=== PATIENT | female | born 1960 | race African-American/Black ===

== ENCOUNTER 2021-03-27 22:12 | Inpatient (IN) | payer MEDICAID ==
[~2021-03-27] VITALS: Ht 165.1 cm; Wt 74.4 kg
--- NOTE | 2021-03-27 22:30 | NUR ---
RT PT RECVD IN ER FOR RESP DISTRESS, PT PLACED ON VENT ON SETTINGS GIVEN BY MEDIC OF RR 18, VT 500, FIO2 40% AND +5 PEEP. SPO2 99% HR 116. TRACH OF SH 8 XLT IS PATENT AND SECURED, SUCTION DONE. VENT PLUGGED INTO RED OUTLET, O2 CONNECTED TO WALL CONNECTION SECURELY AND ALARMS ON AND AUDIBLE. WILL CONTINUE TO MONITOR.
--- NOTE | 2021-03-27 22:30 | NUR ---
LISSA FROM [facility] TO ER BED 5. NON VERBAL, ALERT AND AWAKE. BROUGHT IN FOR DYSPNEA AND TACHYPNEA. PT IS A VENT AND TRACH PT. PT WAS NOTED HAVING RR OF 28. PT IS ALSO NOTED HAVING HR OF 120. MD WAS AT THE BEDSIDE FOR EVAL.
[2021-03-27] MEDS ORDERED: ACETAMINOPHEN 650 MG/SUPP.RECT RC ONE ×2 (22:35→23:00)
[2021-03-27] MEDS ORDERED: VANCOMYCIN 1 GM VIAL ONE (22:55)
[2021-03-27] MEDS ORDERED: VANCOMYCIN 1 GM in IV D5W 250 ML IV ONE (23:00)
[2021-03-27] MEDS ORDERED: IV NS 0.9% 500 ML BAG IV ONE (23:00)
[2021-03-27 23:15] LABS: HEMOGLOBIN 7.7 g/dL (11.5-14.8)
[2021-03-27 23:20] LABS: BASOPHILS % (AUTO) 0.3 % (0.0-2.0); EOSINOPHILS % (AUTO) 0.2 % (0.0-6.0); HEMATOCRIT 25 % (33-45); LYMPHOCYTES # (AUTO) 2.3 K/uL (0.8-4.8); LYMPHOCYTES % (AUTO) 19.2 % (20.0-44.0); MEAN CORPUSCULAR HGB CONC 31 g/dl (31.0-36.0); MEAN CORPUSCULAR VOLUME 83 fL (82-100); MONOCYTES # (AUTO) 0.3 K/uL (0.1-1.30); MONOCYTES % (AUTO) 2.7 % (2.0-12.0); NEUTROPHILS # (AUTO) 9.4 K/uL (1.8-8.9); NEUTROPHILS % (AUTO) 77.6 % (43.0-81.0); PLATELET COUNT (AUTO) 314 K/uL (150-450)
--- NOTE | 2021-03-27 23:27 | NUR ---
RADIOLOGY AT BEDSIDE
[2021-03-27 23:28] LABS: CALCIUM, SERUM 8.4 mg/dL (8.5-10.1); CARBON DIOXIDE 26 mmol/L (21-32); CHLORIDE 108 mmol/L (98-107); CREATININE 0.8 mg/dL (0.6-1.3); GLUCOSE 111 mg/dL (74-106); POTASSIUM 4.3 mmol/L (3.5-5.1); SODIUM SERUM 144 mmol/L (136-145); UREA NITROGEN, BLOOD 33 mg/dL (7-18)
[2021-03-27 23:29] LABS: BILIRUBIN,URINE Negative (NEGATIVE); COLOR,URINE YELLOW (YELLOW); LEUKOCYTE ESTERASE ,URINE Negative (NEGATIVE); NITRITE, URINE Negative (NEGATIVE); PH,URINE 5.5 (5.0-8.0); PROTEIN,URINE 30 mg/dl (NEGATIVE); UGLUCOSE Negative (NEGATIVE)
[2021-03-27] MEDS ORDERED: ENOXAPARIN SODIUM 80 MG/0.8 ML DISP.SYRIN SQ ONE (23:29)
--- NOTE | 2021-03-27 23:29 | NUR ---
VERIFIED WITH MD REGARDING LOVENOX ORDER. PT IS 79KG WITH ORDER TO GIVE 1MG /KG=79MG SQ X 1 DOSE
[2021-03-27 23:44] LABS: BACTERIA,URINE Rare /HPF (None Seen); SQUAMOUS EPITHELIAL CELL,UR 0-2 /HPF (None Seen); WBC,URINE 0-2 /HPF (0-3)
[2021-03-27 23:45] LABS: ALANINE AMINOTRANSFERASE 136 U/L (12-78); ALKALINE PHOSPHATASE 216 U/L (46-116); ASPARTATE AMINOTRANSFERASE 134 U/L (15-37); BILIRUBIN,DIRECT 0.3 mg/dL (0.0-0.2); BILIRUBIN,TOTAL 0.5 mg/dL (0.2-1.0); TOTAL PROTEIN, SERUM 8.3 g/dL (6.4-8.2)
[2021-03-27 23:46] LABS: ALBUMIN 1.1 g/dL (3.4-5.0)
[2021-03-28] VITALS (33 sets, daily range): BP systolic 83–130; BP diastolic 51–78
[2021-03-28] MEDS ORDERED: AZITHROMYCIN 500 MG VIAL ONE (00:28)
[2021-03-28] MEDS ORDERED: IV D5/0.45 NACL 1,000 ML IV PRN (00:30)
[2021-03-28] MEDS ORDERED: ACETAMINOPHEN 650 MG/SUPP.RECT RC PRN (00:30)
[2021-03-28] MEDS ORDERED: Z GUARD REMEDY 2 OZ OINT TP PRN (00:30)
[2021-03-28] MEDS ORDERED: AZITHROMYCIN 500 MG in IV D5W 250 ML IV ONE (00:30)
[2021-03-28 00:52] LABS: WHITE BLOOD COUNT (AUTO) 14.5 K/uL (4.3-11.0)
[2021-03-28 00:53] LABS: BAND % (MANUAL) 13 % (0.0-5.0); LYMPHOCYTES % (MANUAL) 16 % (16-48); METAMYELOCYTES % 3 % (0-0); MONOCYTES % (MANUAL) 7 % (0-11.0); MYELOCYTES % 1 % (0-0); NEUTROPHILS % (MANUAL) 56 (42-76); REACTIVE LYMPHOCYTES 4 % (0-0)
--- NOTE | 2021-03-28 01:34 | NUR ---
TEMP 102.4. PROVIDED WITH COOLING MEASURES.
[2021-03-28] MEDS ORDERED: MEROPENEM 500 MG in IV NS 0.9% 50 ML IV SCH ×2 (02:26→13:00)
[2021-03-28] MEDS ORDERED: MEROPENEM 500 MG VIAL IV ONE (02:52)
--- NOTE | 2021-03-28 04:18 | NUR ---
BED 259 ICU
--- NOTE | 2021-03-28 04:40 | NUR ---
REPORT GIVEN TO CANDI WORLEY FOR JOSE DE JESUS.
--- NOTE | 2021-03-28 05:00 | NUR ---
ICU/BED MANAGER PT PLACED INTO BED, PLACED ON MONITOR. REPORT RECIEVED FROM ER NURSE. RT PLACED PT ON VENT WITH CURRENT SETTINGS. SKIN ISSUES ARE ADDRESSED ALONG WITH INTERVENTIONS TO EACH. SEE FLOW SHEET FOR ASSESSMENT. PT CURRENTLY HAS NO FEVER AND NO TACHY CARDIA. WILL MONITOR THIS PT.
--- NOTE | 2021-03-28 05:07 | NUR ---
PATIENT TAKEN UP WITH RT VIA ACLS PROTOCOLS.
--- NOTE | 2021-03-28 05:10 | NUR ---
RT Pt transported to ICU #259 with MEIR Ricketts, vent plugged into red outlet, O2 Connected to wall connection. Ambu bag and spare trach at bedside.
[2021-03-28 05:51] LABS: BASOPHILS # (AUTO) 0.1 K/uL (0.0-0.2); BASOPHILS % (AUTO) 0.5 % (0.0-2.0); HEMATOCRIT 23 % (33-45); HEMOGLOBIN 7.2 g/dL (11.5-14.8); LYMPHOCYTES # (AUTO) 3.2 K/uL (0.8-4.8); MEAN CORPUSCULAR HGB CONC 31 g/dl (31.0-36.0); MEAN CORPUSCULAR VOLUME 83 fL (82-100); MONOCYTES # (AUTO) 0.5 K/uL (0.1-1.30); MONOCYTES % (AUTO) 3.3 % (2.0-12.0); NEUTROPHILS # (AUTO) 10.1 K/uL (1.8-8.9); NEUTROPHILS % (AUTO) 73.2 % (43.0-81.0); PLATELET COUNT (AUTO) 290 K/uL (150-450); RED BLOOD CELL COUNT(AUTO) 2.76 MIL/uL (4.0-5.2); WHITE BLOOD COUNT (AUTO) 13.8 K/uL (4.3-11.0)
[2021-03-28 06:05] LABS: THYROID STIMULATING HORMONE 2.797 uIU/mL (0.358-3.74)
[2021-03-28 06:12] LABS: BILIRUBIN,TOTAL 0.6 mg/dL (0.2-1.0); CALCIUM, SERUM 8.2 mg/dL (8.5-10.1); CREATININE 0.7 mg/dL (0.6-1.3); PHOSPHORUS 3.8 mg/dL (2.5-4.9); POTASSIUM 3.7 mmol/L (3.5-5.1); TOTAL PROTEIN, SERUM 7.8 g/dL (6.4-8.2)
[2021-03-28 06:29] LABS: ALBUMIN 1.1 g/dL (3.4-5.0)
--- NOTE | 2021-03-28 06:30 | NUR ---
ICU/SURGICAL INSTRUMENT MECHANIC DR POPE STOP LOVENOX DUE TO H/H THAT IS TRENDING DOWN. PHARMACY MADE AWARE OF THIS.
--- NOTE | 2021-03-28 07:10 | NUR ---
ICU/REIMBURSEMENT REP PASSED ON TO DAY SHIFT TO GET MRSA NARES BECAUSE THIS WAS NOT DONE BY ER.
--- NOTE | 2021-03-28 07:35 | NUR ---
RN NOTES RECEIVED PATIENT AWAKE BUT NONVERBAL, TRACH TO VENT WITH SETTINGS AC 18 TV 500 FIO2 40% PEEP 5. SR ON BEDSIDE MONITOR. G TUBE CLAMPED. SOMMER DRAINING BY GRAVITY. PICC VIRA WITH D5 1/2 NS AT 60ML/HR. MRSA SWAB DONE. NO BP AND NO BLOOD DRAWS ON LEFT ARM DUE TO HISTORY OF MASTECTOMY - SIGNS POSTED. SAFETY CHECKS IN PLACE. WILL CONTINUE TO MONITOR.
[2021-03-28] MEDS ORDERED: ATOR10TA GT (08:08)
[2021-03-28] MEDS ORDERED: NUT.237L30 GT (08:08)
[2021-03-28] MEDS ORDERED: SENN-261 GT (08:08)
[2021-03-28] MEDS ORDERED: CHLO473M5 MM (08:08)
[2021-03-28] MEDS ORDERED: ACET-868 GT (08:08)
[2021-03-28] MEDS ORDERED: DOCU50LI GT (08:08)
[2021-03-28] MEDS ORDERED: GLUC1KIT IM (08:08)
[2021-03-28] MEDS ORDERED: POTA20PA3 GT (08:08)
[2021-03-28] MEDS ORDERED: INSU100V27 SQ (08:08)
[2021-03-28] MEDS ORDERED: ASCO-352 GT (08:08)
[2021-03-28] MEDS ORDERED: MAGN400O6 GT (08:08)
[2021-03-28] MEDS ORDERED: METO25TA20 GT (08:08)
[2021-03-28] MEDS ORDERED: DEXT38GE12 PO (08:08)
[2021-03-28] MEDS ORDERED: CEFT1VIA15 IV (08:08)
[2021-03-28] MEDS ORDERED: MAGN400T26 GT (08:08)
[2021-03-28] MEDS ORDERED: FAMO20VI5 IV (08:08)
[2021-03-28] MEDS ORDERED: IPRA4AER IH ×2 (08:08)
[2021-03-28] MEDS ORDERED: HEPA50007 SQ (08:08)
[2021-03-28] MEDS ORDERED: DEXT50DI8 IV (08:08)
[2021-03-28] MEDS: PANTOPRAZOLE 40 MG VIAL IV SCH (08:12)
[2021-03-28] MEDS: MEROPENEM 1 G in IV NS 0.9% 100 ML IV SCH ×3 (08:12→23:38)
[2021-03-28] MEDS ORDERED: ENOXAPARIN SODIUM 80 MG/0.8 ML DISP.SYRIN SQ SCH ×2 (09:00)
[2021-03-28] MEDS: METOPROLOL TARTRATE 25 MG TABLET GT SCH ×2 (09:34→16:08)
[2021-03-28] MEDS: ASCORBIC ACID 500 MG TABLET GT SCH (09:34)
[2021-03-28] MEDS: HEPARIN SODIUM, PORCINE 5000 UNITS/1 ML VIAL SQ SCH ×2 (09:39→22:00)
[2021-03-28] MEDS: ACETAMINOPHEN 650 MG/20.3 ML UDC NG PRN ×2 (11:15→17:18)
[2021-03-28] MEDS: VANCOMYCIN 1 GM in IV D5W 250 ML IV SCH ×2 (11:15→23:37)
[2021-03-28 12:23] LABS: MAGNESIUM 2.8 mg/dL (1.8-2.4)
[2021-03-28] MEDS: ALBUTEROL FS 2.5 MG/3 ML VIAL.NEB NEB SCH ×2 (13:44→19:30)
[2021-03-28] MEDS: IPRATROPIUM NEB FS 0.5 MG/2.5 ML AMPUL.NEB NEB SCH ×2 (13:44→19:30)
--- NOTE | 2021-03-28 16:00 | NUR ---
RN NOTE PENDING DIETITIAN CONSULT FOR THE TYPE AND THE RATE OF TUBE FEEDING. PATIENT WAS ON GLUCERNA 1.[address] [facility]. THUS WAS ORDERED FOR THE SAME FEED AT 10 ML/HR FOR OVERNIGHT UNTIL FURTHER RECOMMENDATION FROM DIETITIAN.
[2021-03-28] MEDS: GLUCERNA 1.2 1,000 ML BOTTLE NG PRN (17:30)
--- NOTE | 2021-03-28 18:17 | NUR ---
RN NOTES PATIENT REMAINS AWAKE, EYES TRACKING BUT NONVERBAL, TRACH TO VENT WITH SETTINGS AC 18 TV 500 FIO2 30% PEEP 5. SR WITH BIGEMINY. G TUBE TO GLUCERNA 1.2 AT 10ML/HR, TOLERATING WELL AT THIS TIME. SOMMER DRAINED 750MLS. PICC VIRA WITH TKO ON FLOW. COOLING MEASURES IN PLACE. WILL ENDORSE TO NIGHT RN FOR CONTINUITY OF CARE.
--- NOTE | 2021-03-28 19:52 | NUR ---
RT NOTE TX NOT GIVEN DUE TO PENDING COVID RESULTS. RN IRIS AWARE. NO DISTRESS NOTED. WILL MONITOR.
[2021-03-29] VITALS (33 sets, daily range): BP systolic 100–136; BP diastolic 53–84
[2021-03-29] MEDS: ACETAMINOPHEN 650 MG/20.3 ML UDC NG PRN ×3 (00:20→19:47)
[2021-03-29] MEDS: ALBUTEROL FS 2.5 MG/3 ML VIAL.NEB NEB SCH ×4 (01:30→20:34)
[2021-03-29] MEDS: IPRATROPIUM NEB FS 0.5 MG/2.5 ML AMPUL.NEB NEB SCH ×4 (01:30→20:34)
--- NOTE | 2021-03-29 01:51 | NUR ---
patient has trach to vent ac18,tv 500, [id number]% peep 5 sat 100%. on monitor sinus has upper right picc line lungs diminish to listen patient has gt-glucernia infusing at 10 cc hour. no residual.at mid nite no residual. patient has f/c draining berna urine. skin with open wound at sacral. patient had 101 temp given tylenol elixer. ice packs to each side of patients body.will check again at 0400.
[2021-03-29 04:56] LABS: CREATININE 0.8 mg/dL (0.6-1.3); MAGNESIUM 2.7 mg/dL (1.8-2.4); POTASSIUM 3.5 mmol/L (3.5-5.1)
[2021-03-29 05:03] LABS: BASOPHILS % (AUTO) 0.2 % (0.0-2.0); EOSINOPHILS % (AUTO) 0.1 % (0.0-6.0); HEMATOCRIT 23 % (33-45); HEMOGLOBIN 7.4 g/dL (11.5-14.8); LYMPHOCYTES # (AUTO) 1.5 K/uL (0.8-4.8); LYMPHOCYTES % (AUTO) 11.6 % (20.0-44.0); MEAN CORPUSCULAR HGB CONC 32 g/dl (31.0-36.0); MEAN CORPUSCULAR VOLUME 83 fL (82-100); MONOCYTES # (AUTO) 0.3 K/uL (0.1-1.30); MONOCYTES % (AUTO) 2.4 % (2.0-12.0); NEUTROPHILS # (AUTO) 10.7 K/uL (1.8-8.9); NEUTROPHILS % (AUTO) 85.7 % (43.0-81.0); PLATELET COUNT (AUTO) 275 K/uL (150-450); RED BLOOD CELL COUNT(AUTO) 2.81 MIL/uL (4.0-5.2)
[2021-03-29 06:33] LABS: BAND % (MANUAL) 27 % (0.0-5.0); LYMPHOCYTES % (MANUAL) 20 % (16-48); MONOCYTES % (MANUAL) 4 % (0-11.0); NEUTROPHILS % (MANUAL) 49 (42-76)
[2021-03-29 06:36] LABS: WHITE BLOOD COUNT (AUTO) 13.1 K/uL (4.3-11.0)
--- NOTE | 2021-03-29 07:05 | NUR ---
RN NOTES RECEIVED PATIENT AWAKE , NONVERBAL, TRACH TO VENT WITH SETTINGS AC 18 TV 500 FIO2 40% PEEP 5. SR ON BEDSIDE MONITOR. TF AT 10CC/HR RUNNING, NO RESIDUAL NOTED, SOMMER DRAINING BY GRAVITY. NO BP AND NO BLOOD DRAWS ON LEFT ARM DUE TO HISTORY OF MASTECTOMY - SIGNS POSTED. SAFETY CHECKS IN PLACE. SR UP x3, CALL LIGHT WITHIN EASY REACH, BED LOCKED AND IN LOWEST POSITION, WILL CONTINUE TO MONITOR.
--- NOTE | 2021-03-29 07:51 | NUR ---
WOUND CARE CONSULT: REVIEWED CHART,NURSING DOCUMENTATION AND PHOTOS WHICH INDICATE SACRAL SCARRING WITH DISCOLORATION AND FOOT LESIONS/WOUNDS, PRESENT ON ADMISSION. SURGICAL/DPM CONSULTS MADE TO DR LEDBETTER AND DR URBAN. RECOMMENDATIONS MADE FOR SKIN PROTECTION. DISCUSSED WITH NURSING STAFF. FIRST STEP LOW AIRLOSS MATTRESS IS ON ORDER. MD IN AGREEMENT WITH PLAN OF CARE.
[2021-03-29] MEDS: MEROPENEM 1 G in IV NS 0.9% 100 ML IV SCH ×4 (08:05→23:31)
[2021-03-29] MEDS: PANTOPRAZOLE 40 MG VIAL IV SCH (08:07)
[2021-03-29] MEDS: ASCORBIC ACID 500 MG TABLET GT SCH (08:08)
[2021-03-29] MEDS: METOPROLOL TARTRATE 25 MG TABLET GT SCH ×2 (08:08→17:00)
[2021-03-29] MEDS: HEPARIN SODIUM, PORCINE 5000 UNITS/1 ML VIAL SQ SCH ×2 (08:09→20:11)
[2021-03-29 10:38] LABS: BILIRUBIN,DIRECT 0.4 mg/dL (0.0-0.2); BILIRUBIN,TOTAL 0.6 mg/dL (0.2-1.0); TOTAL PROTEIN, SERUM 7.5 g/dL (6.4-8.2)
[2021-03-29 10:47] LABS: ALBUMIN 1.1 g/dL (3.4-5.0)
--- NOTE | 2021-03-29 12:00 | NUR ---
RN NOTES TRACH CARE DONE, CONTINUE TO MONITOR.
[2021-03-29] MEDS: VANCOMYCIN 1 GM in IV D5W 250 ML IV SCH (12:04)
--- NOTE | 2021-03-29 15:10 | NUR ---
RN NOTES L UPPER ARM PICC LINE SITE LEAKING , DRESSING WET TO TOUCH, PICC LINE D/CE, NEW ORDER RECEIVED FOR MIDLINE PLACEMENT.
--- NOTE | 2021-03-29 15:50 | NUR ---
RN NOTES PT TRANSFERRED TO ROOM 327-1 TELE STATUS , VIA ACLS PROTOCOL , NO BELONGING NOTED , IN STABLE CONDITION, REPORT GIVEN TO TANISHA RN FOR CONTINUITY OF CARE .
--- NOTE | 2021-03-29 18:25 | NUR ---
RT Pt received trached on mechanical ventilation with noted settings. Vent is plugged into red outlet with BVM and spare trach by bedside. No SOB or respiratory distress noted. Addendum: 03/29/21 at 1826 by BUNNY TONY RT Amended: Links added.
[2021-03-29] MEDS: GLUCERNA 1.2 1,000 ML BOTTLE NG PRN (18:26)
--- NOTE | 2021-03-29 19:06 | NUR ---
HEAD START ASSISTANT TEACHER CLOSING NOTES PATIENT CURRENTLY LYING IN BED, AWAKE. NONVERBAL, OPENS EYES. TRACH TO VENT - SETTINGS AC 18 TV 500 FIO2 40% PEEP 5. ON TELE MONITOR - SR WITH PVCS. G TUBE NOTED - INTACT AND PATENT - RUNNING GLUCERNA 1.2 AT 40CC/HR. SOMMER CATHETER NOTED - INTACT AND PATENT - DRAINING CLEAR, URINE TO GRAVITY. IV ACCESS TO LEFT UPPER ARM - MIDLINE - INTACT AND IN PLACE (PLACEMENT IS FINE WITH MASTECTOMY - RN TO MONITOR CLOSELY). NO BP OR BLOOD DRAWS ON LEFT ARM DUE TO HISTORY OF MASTECTOMY - ENDORSED TO SKOOG PATCHING MACHINE OPERATOR NURSE. SAFETY MEASURES IN PLACE. CALL LIGHT WITHIN REACH. WILL ENDORSE TO SKOOG PATCHING MACHINE OPERATOR NURSE FOR JOSE DE JESUS.
--- NOTE | 2021-03-29 19:10 | NUR ---
RN NOTE RECEIVED PATIENT IN BED RESTING OPEN EYES,NON VERBAL,ON MECHANICAL VENT SETTING TV 500 AV 18 PEEP 5 FIO2:30% O2:96% IV SITE IS ON LEFT UPPER ARM MID LINE INTACT PATENT (PLACEMENT IS FINE WITH MASTECTOMY)NO LAB DRAW NO BP ON LEFT ARM,ON G-TUBE FEEDING GLUCERNA 1.2 40CC/HR CHECKED PLACEMENT IN PLACE NO RESIDUAL NOTED,SOMMER CATHETER IN PLACE URINE DRAINING YELLOW AND CLEAR BY GRAVITY, HEAD OF THE BED ELEVATED,SAFETY MEASURE IMPLEMENT BED IN LOW POSITON AND LOCKED,CONTINUE TO MONITOR.
--- NOTE | 2021-03-29 19:47 | NUR ---
RN NOTE TEMPERTURE IS 100.9 ACETAMINOPHEN 650MG PRN GIVEN CONTINUE TO MONITOR.
[2021-03-29] MEDS: BISACODYL SUPP (10 MG) 10 MG/SUPP.RECT SUPP.RECT RC PRN (21:45)
--- NOTE | 2021-03-29 22:00 | NUR ---
RN NOTE TEMPERATURE IS 99.3 CONTINUE TO MONITOR
[2021-03-30] VITALS: BP_SYST 102; BP_SYST 97; BP_DIAS 54; BP_DIAS 57
[2021-03-30] MEDS: VANCOMYCIN 1 GM in IV D5W 250 ML IV SCH (00:17)
[2021-03-30] MEDS: IPRATROPIUM NEB FS 0.5 MG/2.5 ML AMPUL.NEB NEB SCH ×4 (02:06→20:11)
[2021-03-30] MEDS: ALBUTEROL FS 2.5 MG/3 ML VIAL.NEB NEB SCH ×4 (02:06→20:11)
--- NOTE | 2021-03-30 02:30 | NUR ---
RN NOTE PATIENT HR GOING HIGH 162 BP 114/[address] POPE ORDERED STAT EKG NOTED AND CARRIED OUT.
[2021-03-30] MEDS ORDERED: ADENOSINE 6 MG/2 ML VIAL IVP STA ×2 (02:45→03:03)
[2021-03-30] MEDS ORDERED: ADENOSINE 6 MG/2 ML VIAL ONE (03:03)
[2021-03-30] MEDS: MORPHINE SULFATE INJ 2 MG/ML DISP.SYRIN IV PRN (03:10)
--- NOTE | 2021-03-30 03:10 | NUR ---
RN NOTE MORPHINE IV PUSH PRN GIVEN FOR PAIN 03/23 CONTINUE TO MONITOR.
[2021-03-30] MEDS: ACETAMINOPHEN 650 MG/20.3 ML UDC NG PRN (03:30)
--- NOTE | 2021-03-30 03:30 | NUR ---
RN NOTE RESULT OF EKG SENT TO DR POPE AT 249 HE ORDERED ADENOSINE 6MG/2ML IV PUSH NOTED AND CARRIED OUT IV PUSH DONE ON 253 CONTINUE TO MONITOR,STILL HR IS HIGH [address] POPE HE ORDERED 12MG/4ML ADENOSINE IV PUSH CONTINUE TO MONITOR, HELD SECOND ADENOSINE DUE TO HR [address] POPE CONTINUE TO MONITOR
[2021-03-30 04:00] VITALS: BP 104/57
[2021-03-30 06:26] LABS: BASOPHILS % (AUTO) 0.3 % (0.0-2.0); EOSINOPHILS % (AUTO) 0.2 % (0.0-6.0); HEMATOCRIT 22 % (33-45); LYMPHOCYTES # (AUTO) 1.7 K/uL (0.8-4.8); LYMPHOCYTES % (AUTO) 15.8 % (20.0-44.0); MEAN CORPUSCULAR HGB CONC 31 g/dl (31.0-36.0); MEAN CORPUSCULAR VOLUME 84 fL (82-100); MONOCYTES # (AUTO) 0.2 K/uL (0.1-1.30); MONOCYTES % (AUTO) 1.6 % (2.0-12.0); NEUTROPHILS # (AUTO) 8.7 K/uL (1.8-8.9); NEUTROPHILS % (AUTO) 82.1 % (43.0-81.0); PLATELET COUNT (AUTO) 283 K/uL (150-450); RED BLOOD CELL COUNT(AUTO) 2.65 MIL/uL (4.0-5.2); WHITE BLOOD COUNT (AUTO) 10.6 K/uL (4.3-11.0)
[2021-03-30 06:40] LABS: CALCIUM, SERUM 7.8 mg/dL (8.5-10.1); CREATININE 0.6 mg/dL (0.6-1.3); MAGNESIUM 2.5 mg/dL (1.8-2.4); PHOSPHORUS 2.8 mg/dL (2.5-4.9); POTASSIUM 3.3 mmol/L (3.5-5.1)
[2021-03-30 08:00] VITALS: BP 83/47
[2021-03-30 08:05] LABS: ABG BASE EXCESS 6.4 mmol/L; ABG OXYGEN SATURATION 95.3 % (92.0-98.5); ABG PCO2 37.5 mmHg (35.0-45.0); ABG PH 7.518 (7.350-7.450); ABG PO2 76.9 mmHg (75.0-100.0); AaDO2 92.9 mmHg; COHb 1.7 % (0.5-1.5); MetHb 0.3 % (0.0-1.5); O2Hb 93.4 % (94.0-97.0); SITE, ABG Right Radial; VENT MODE, BG Ac 18 500 +5 30%
--- NOTE | 2021-03-30 08:22 | NUR ---
G REPORT SENT TO DR. VENEGAS.
[2021-03-30] MEDS ORDERED: IV NS 0.9% 500 ML BAG IV ONE (08:30)
[2021-03-30] MEDS: METOPROLOL TARTRATE 25 MG TABLET GT SCH ×2 (08:33→16:17)
--- NOTE | 2021-03-30 08:43 | NUR ---
DR. NELSON CALLED WITH LOW BP,ORDERS GIVEN.
[2021-03-30 09:21] LABS: BAND % (MANUAL) 15 % (0.0-5.0); LYMPHOCYTES % (MANUAL) 30 % (16-48); METAMYELOCYTES % 1 % (0-0); MONOCYTES % (MANUAL) 4 % (0-11.0); NEUTROPHILS % (MANUAL) 50 (42-76)
[2021-03-30] MEDS: ASCORBIC ACID 500 MG TABLET GT SCH (09:52)
[2021-03-30] MEDS: PANTOPRAZOLE 40 MG/PACK PACK GT SCH (09:53)
[2021-03-30] MEDS: HEPARIN SODIUM, PORCINE 5000 UNITS/1 ML VIAL SQ SCH (09:55)
[2021-03-30] MEDS ORDERED: POTASSIUM CHLORIDE 20 MEQ POWDER PACKET GT SCH (10:00)
[2021-03-30] MEDS: MEROPENEM 1 G in IV NS 0.9% 100 ML IV SCH ×2 (10:17→16:44)
--- NOTE | 2021-03-30 10:42 | NUR ---
bp recheck after ns fluid 105/52,heart rate 90.dr. dawson here and aware.
--- NOTE | 2021-03-30 10:44 | NUR ---
given klor con 20 meq per g-tube for potassium level 3.3.
--- NOTE | 2021-03-30 11:35 | NUR ---
PER DR. VENEGAS THORACENTESIS CAN BE DONE TOMORROW MORNING. RN/ ANDER WILL PUT A NOTE TO HOLD HEPARIN UNTIL AFTER PROCEDURE.
[2021-03-30 12:00] VITALS: BP 104/50
[2021-03-30 12:07] LABS: *SPE A/G RATIO 0.2 (0.7-1.7); *SPE ALPHA-1-GLOBULIN 0.6 g/dL (0.0-0.4); *SPE ALPHA-2-GLOBULIN 1.4 g/dL (0.4-1.0); *SPE BETA GLOBULIN 1.3 g/dL (0.7-1.3); *SPE M-SPIKE Not Observed g/dL (Not Observed)
[2021-03-30 16:00] VITALS: BP 112/53
--- NOTE | 2021-03-30 17:45 | NUR ---
PER DRAINAGE INSPECTOR PT HAS 11 BEATS OF V-TACH.PHOTO OF RHYTHM TAKEN AND SENT TO DR. SMITH.ORDERS GIVEN.
[2021-03-30] MEDS ORDERED: POTASSIUM CHLORIDE 20 MEQ POWDER PACKET GT ONE (19:00)
--- NOTE | 2021-03-30 19:50 | NUR ---
RN NOTES PATIENT RECEIVED IN BED PT OPEN EYES ON MECHANICAL VENT,ON TELE MONITORY NO SOB NOTED,IV SITE IS ON LEFT UPPER ARM MIDLINE INTACT PATENT KEEP CLEAN AND DRY ALL THE TIME,KEEP COMFORTABLE,KEEP HEAD OF THE BED ELEVATED . PT HAS GT WITH GLUCERNA 1.2 RUNNING AT@ 40 ML/HR TOLERATING WELL.WILL CONTINUE TO MONITOR.
[2021-03-30 20:00] VITALS: BP 109/53
--- NOTE | 2021-03-30 22:00 | NUR ---
RN NOTES DUE TO VENT SHUTTING OFF AND RED PLUG NOT WORKING ENGENDERING CALLED IMMEDIATELY TO CHECK OUTLETS. CHARGE NURSE MADE AWARE OF OUTLET MALFUNCTION WILL CONTINUE TO MONITOR PT CLOSELY.
--- NOTE | 2021-03-30 22:10 | NUR ---
RT NOTE ARRIVED TO FLOOR AND NOTICED VENTILATOR ALARM ALARMING. ARRIVED BEDSIDE AND VENTILATOR SHUT OFF AND NOTED BACK UP BATTERY FLASHING WITH NURSES BEDSIDE. VENT NOTED TO BE PLUGGED INTO RED OUTLET AT THIS TIME. BAG VENTILATION PERFORMED ON PATIENT VIA TRACH. NO DISTRESS NOTED ON PATIENT SPO2 94% HR103. RED OUTLET WAS NOT WORKING AT THIS TIME. SWITCHED VENTILATOR PLUG TO DIFFERENT RED OUTLET. VENTILATOR FUNCTIONING AFTER SWITCH. REMAINED BEDSIDE TO ENSURE VENTILATOR FUNCTIONING PROPERLY. PATIENT REMAINS IN STABLE CONDITION AT THIS TIME. NO SIGNS OF RESPIRATORY DISTRESS NOTED. ALARMS ARE SET AND AUDIBLE. WILL CONTINUE TO MONITOR PATIENT. Addendum: 03/30/21 at 2234 by SITA VANEGAS RT Amended: Links added.
[2021-03-31] VITALS (10 sets, daily range): BP systolic 97–118; BP diastolic 40–59
[2021-03-31] MEDS: MEROPENEM 1 G in IV NS 0.9% 100 ML IV SCH ×2 (00:05→08:07)
[2021-03-31] MEDS: GLUCERNA 1.2 1,000 ML BOTTLE NG PRN (00:11)
[2021-03-31] MEDS: IPRATROPIUM NEB FS 0.5 MG/2.5 ML AMPUL.NEB NEB SCH ×4 (01:49→19:53)
[2021-03-31] MEDS: ALBUTEROL FS 2.5 MG/3 ML VIAL.NEB NEB SCH ×4 (01:49→19:53)
[2021-03-31 06:07] LABS: BASOPHILS % (AUTO) 0.2 % (0.0-2.0); EOSINOPHILS % (AUTO) 0.6 % (0.0-6.0); HEMATOCRIT 22 % (33-45); LYMPHOCYTES # (AUTO) 2.3 K/uL (0.8-4.8); LYMPHOCYTES % (AUTO) 18.9 % (20.0-44.0); MEAN CORPUSCULAR HGB CONC 31 g/dl (31.0-36.0); MEAN CORPUSCULAR VOLUME 84 fL (82-100); MONOCYTES # (AUTO) 0.6 K/uL (0.1-1.30); MONOCYTES % (AUTO) 4.9 % (2.0-12.0); NEUTROPHILS # (AUTO) 9.1 K/uL (1.8-8.9); NEUTROPHILS % (AUTO) 75.4 % (43.0-81.0); PLATELET COUNT (AUTO) 262 K/uL (150-450); RED BLOOD CELL COUNT(AUTO) 2.64 MIL/uL (4.0-5.2)
[2021-03-31 06:39] LABS: HEMOGLOBIN 6.8 g/dL (11.5-14.8)
--- NOTE | 2021-03-31 07:12 | NUR ---
RN NOTES PATIENT REMAINS ON OPEN EYES ON MECHANICAL VENT,ON TELE MONITORY HR 89 NO SOB NOTED,IV SITE IS ON LEFT UPPER ARM MIDLINE INTACT PATENT ALL DUE MEDS GIVEN MD ORDERED KEEP CLEAN AND DRY ALL THE TIME,KEEP COMFORTABLE,KEEP HEAD OF THE BED ELEVATED ALL NEEDS MET ENDORSE NEXT COMING SHIFT FOR CONTINUATION OF CARE.
--- NOTE | 2021-03-31 07:22 | NUR ---
COMMERCIAL LINES ACCOUNT ASSISTANT OPENING NOTES RECEIVED PATIENT LYING AT MODERATE HIGH BACKREST POSITION. OBTUNDED, OPEN EYES TO STIMULI. PT WITH TRACH CONNECTED TO MECHANICAL VENTILATOR AT SETTINGS: AC TV 500 R 18 PEEP 0 FIO2:30% SPO2 96%-97% AT THIS TIME. TELEMONITOR READING SHOWS NSR WITH BBB'S AND OCCASIONAL PVC'S, HR ON THE 90'S, MIDLINE LEFT UPPER ARM INTACT AND PATENT, NO LAB DRAW AND NO BP ON LEFT ARM. ON G-TUBE FEEDING OF GLUCERNA 1.2 @ 40CC/HR, TOLERATING WELL. ASPIRATION PRECAUTIONS MAINTAINED. SOMMER CATHETER IN PLACE URINE DRAINING CLEAR YELLOW VIA GRAVITY: SAFETY MEASURES IN PLACE: HOB KEPT ELEVATED AT ALL TIME, BED IN LOWEST LOCKED POSITION W/ SR UP X3. CALL LIGHT W/IN REACH. WILL CONTINUE TO MONITOR.
[2021-03-31 07:23] LABS: CALCIUM, SERUM 8.2 mg/dL (8.5-10.1); CREATININE 0.4 mg/dL (0.6-1.3); POTASSIUM 3.9 mmol/L (3.5-5.1)
[2021-03-31] MEDS: ASCORBIC ACID 500 MG TABLET GT SCH (08:58)
[2021-03-31] MEDS: PANTOPRAZOLE 40 MG/PACK PACK GT SCH (08:58)
[2021-03-31] MEDS: METOPROLOL TARTRATE 25 MG TABLET GT SCH ×2 (08:59→17:00)
--- NOTE | 2021-03-31 11:00 | NUR ---
RN NOTES PT FEEDING OF GLUCERNA 1.2 @ 40ML HR TOLERATING WELL. GASTRIC RESIDUALS CHECKED AND WAS 5ML. RATE INCREASED TO 50ML HR. WILL CONTINUE TO MONITOR.
[2021-03-31 11:25] LABS: BAND % (MANUAL) 2 % (0.0-5.0); LYMPHOCYTES % (MANUAL) 20 % (16-48); MONOCYTES % (MANUAL) 6 % (0-11.0); NEUTROPHILS % (MANUAL) 72 (42-76)
--- NOTE | 2021-03-31 11:35 | NUR ---
RN NOTES PT HAD U/S GUIDED RIGHT THORACENTESIS BY DR SCHROEDER,. COLLECTED 860ML AND SENT TO LAB FOR CYTOLOGY TEST.
--- NOTE | 2021-03-31 13:00 | NUR ---
RN NOTES GT FEEDING OF GLUCERNA 1.2 @ 50ML HR TOLERATING WELL. 5 ML GASTRIC RESIDUALS NOTED. FEEDING RATE INCREASED TO GOAL OF 55ML/HR PER MD ORDER. WILL CONTINUE TO MONITOR.
--- NOTE | 2021-03-31 13:03 | NUR ---
RN NOTES PATIENT WITH HGB 6.8, MD ORDERED PRBC X1. STARTED BLOOD TRANSFUSION AT 1302 VIA MIDLINE ON BRADY. V/S TAKEN AND RECORDED. WILL MONITOR FOR ANY ALLERGIC/ADVERSE REACTIONS.
--- NOTE | 2021-03-31 13:20 | NUR ---
RN NOTES NO ALLERGIC/ADVERSE REACTIONS LIKE SOB, FEVER, RASH ETC NOTED AFTER 15MINUTES OF STARTING BLOOD TRANSFUSION. WILL CONTINUE TO MONITOR.
[2021-03-31] MEDS: CEFEPIME 2 GM in IV D5W 100 ML IV SCH ×2 (13:32→20:55)
--- NOTE | 2021-03-31 16:29 | NUR ---
RN NOTES BLOOD TRANSFUSION OF OF 26OML OF PRBC X1 JUST FINISHED. PT TOLERATED WELL WITH NO ALLERGIC/ADVERSE REACTIONS NOTED.
--- NOTE | 2021-03-31 18:42 | NUR ---
ONLINE ADVERTISING ANALYST CLOSING NOTES PATIENT IN BED AWAKE AT THIS TIME. HOB ELEVATED. A/O X1. OPEN HER EYES, CONFUSED AND FOLLOWS SIMPLE COMMANDS. PT WITH TRACH NICCI #8 CONNECTED TO MECHANICAL VENTILATOR AT SETTINGS: AC TV 500 R 18 PEEP 0 FIO2:30%, TOLERATING SETTINGS WELL WITH NO ACUTE RESPIRATORY DISTRESS NOTED DURING SHIFT. TELEMONITOR READING SHOWS NSR WITH BBB'S AND OCCASIONAL PVC'S, HR ON THE 90'S. MIDLINE ON BRADY INTACT, PATENT AND FLUSHES WELL. ON G-TUBE FEEDING OF GLUCERNA 1.2 @ 55CC/HR, TOLERATING WELL. ASPIRATION PRECAUTIONS MAINTAINED. SOMMER CATHETER IN PLACE DRAINING CLEAR YELLOW URINE VIA GRAVITY. PT TURNED AND REPOSITIONED Q 2HRS AND PRN. ALL NEEDS AND CARE PROVIDED WELL. SAFETY MEASURES IN PLACE: BED IS LOW AND WHEELS LOCKED, HOB KEEP ELEVATED, SIDE RAILS UP X2 AND CALL LIGHT WITHIN REACH. WILL ENDORSE JOSE DE JESUS TO NIGHT BAKER NURSE
--- NOTE | 2021-03-31 19:42 | NUR ---
CARPET REPAIRER NOTES PATIENT IN BED AWAKE. NO S/S OF APPARENT DISTRESS VENT DEPENDENT. NOT EXHIBITING PAIN VIA FLACC SCALE. FRONT END DRUPAL DEVELOPER READING SINUS TACHY 101 WITH PVC. SOMMER DRAINING DARK LEONARDO YELLOW URINE. GTUBE NOTED RUNNING GLUCERNA 1.2 @55ML/HR. NO FLUIDS RUNNING AT THIS TIME. SAFETY N PLACE. WILL CONTINUE TO MONITOR.
--- NOTE | 2021-03-31 23:00 | NUR ---
telecommunications administrator notes patent having fever 102. given tylenol. cooling measures initiated.
[2021-03-31] MEDS: ACETAMINOPHEN 650 MG/20.3 ML UDC NG PRN (23:02)
--- NOTE | 2021-04-01 | NUR ---
telephone assembler notes patient temperature still elevated at 100. cont. with cooling measures. will continue to monitor.
[2021-04-01 00:12] VITALS: BP 104/42
[2021-04-01] MEDS: IPRATROPIUM NEB FS 0.5 MG/2.5 ML AMPUL.NEB NEB SCH ×4 (01:51→19:58)
[2021-04-01] MEDS: ALBUTEROL FS 2.5 MG/3 ML VIAL.NEB NEB SCH ×4 (01:51→19:58)
[2021-04-01 04:00] VITALS: BP 105/48
--- NOTE | 2021-04-01 04:00 | NUR ---
telephone installer notes patient temperature went down to 98.6. will continue to monitor patient.
[2021-04-01] MEDS: CEFEPIME 2 GM in IV D5W 100 ML IV SCH ×3 (05:04→21:00)
[2021-04-01 06:41] LABS: CALCIUM, SERUM 7.8 mg/dL (8.5-10.1); CREATININE 0.5 mg/dL (0.6-1.3); POTASSIUM 3.2 mmol/L (3.5-5.1)
[2021-04-01 07:28] LABS: BASOPHILS % (AUTO) 0.3 % (0.0-2.0); EOSINOPHILS % (AUTO) 1.5 % (0.0-6.0); HEMATOCRIT 26 % (33-45); HEMOGLOBIN 8.1 g/dL (11.5-14.8); LYMPHOCYTES % (AUTO) 17.5 % (20.0-44.0); MEAN CORPUSCULAR HGB CONC 31 g/dl (31.0-36.0); MEAN CORPUSCULAR VOLUME 86 fL (82-100); MONOCYTES # (AUTO) 0.4 K/uL (0.1-1.30); NEUTROPHILS # (AUTO) 9.1 K/uL (1.8-8.9); NEUTROPHILS % (AUTO) 77.7 % (43.0-81.0); PLATELET COUNT (AUTO) 207 K/uL (150-450); RED BLOOD CELL COUNT(AUTO) 3.02 MIL/uL (4.0-5.2); WHITE BLOOD COUNT (AUTO) 11.7 K/uL (4.3-11.0)
--- NOTE | 2021-04-01 07:31 | NUR ---
DIRECTOR OF SLOT OPERATIONS OPENING NOTES RECEIVED PATIENT AWAKE IN BED IN NO ACUTE SIGNS OF DISTRESS. HOB ELEVATED. PT ALERT AND OPEN EYES TO STIMULI. PT WITH TRACH SHILEY #8 CONNECTED TO MECHANICAL VENTILATOR AT SETTINGS: AC TV 500 R 18 PEEP 0 FIO2:30%, TOLERATING SETTINGS WELL WITH NO SOB NOTED. TELEMONITOR READING SHOWS NSR WITH BBB'S AND OCCASIONAL PVC'S, HR ON THE 80'S AT THIS TIME. BRADY MIDLINE INTACT AND PATENT. G-TUBE FEEDING OF GLUCERNA 1.2 @ 55 ML/HR IN PROGRESS, TOLERATING WELL. ASPIRATION PRECAUTIONS MAINTAINED. SOMMER CATHETER IN PLACE DRAINING CLEAR YELLOW URINE VIA GRAVITY. SAFETY MEASURES IN PLACE: HOB KEPT ELEVATED AT ALL TIMES, BED IN LOWEST LOCKED POSITION W/ SR UP X3 AND CALL LIGHT W/IN REACH. WILL CONTINUE TO MONITOR.
--- NOTE | 2021-04-01 07:34 | NUR ---
tele closing rn report given to keshav for continuity of care.
[2021-04-01 08:00] VITALS: BP 99/58
[2021-04-01] MEDS: PANTOPRAZOLE 40 MG/PACK PACK GT SCH (09:00)
[2021-04-01] MEDS: METOPROLOL TARTRATE 25 MG TABLET GT SCH ×2 (09:00→16:59)
[2021-04-01] MEDS: ASCORBIC ACID 500 MG TABLET GT SCH (09:00)
[2021-04-01] MEDS: POTASSIUM CHLORIDE 20 MEQ POWDER PACKET GT SCH ×2 (09:31→10:57)
[2021-04-01 09:46] LABS: BAND % (MANUAL) 15 % (0.0-5.0); LYMPHOCYTES % (MANUAL) 18 % (16-48); METAMYELOCYTES % 1 % (0-0); MONOCYTES % (MANUAL) 1 % (0-11.0); NEUTROPHILS % (MANUAL) 65 (42-76)
--- NOTE | 2021-04-01 10:48 | NUR ---
RN NOTES PT NOTED WITH RECTAL BLEEDING AFTER DOING LARGE BOWEL MOVEMENT. V/S TAKEN: 97/56, P 84, R 18 AND T 98.2F. REPORTED TO DR NELSON WITH ORDER TO DO STAT CBC AND TO CLOSELY MONITOR PT.
[2021-04-01] MEDS: GLUCERNA 1.2 1,000 ML BOTTLE NG PRN (11:17)
[2021-04-01] MEDS: VANCOMYCIN 1 GM in IV D5W 250 ML IV SCH ×2 (11:29→23:22)
[2021-04-01 12:20] LABS: HEMATOCRIT 27 % (33-45); HEMOGLOBIN 8.4 g/dL (11.5-14.8); MEAN CORPUSCULAR HGB CONC 31 g/dl (31.0-36.0); MEAN CORPUSCULAR VOLUME 85 fL (82-100); PLATELET COUNT (AUTO) 213 K/uL (150-450); RED BLOOD CELL COUNT(AUTO) 3.15 MIL/uL (4.0-5.2); WHITE BLOOD COUNT (AUTO) 9.1 K/uL (4.3-11.0)
[2021-04-01] MEDS ORDERED: Potassium Chloride 40 MEQ in IV D5W 1,000 ML IV ONE (13:00)
[2021-04-01 13:50] LABS: BAND % (MANUAL) 18 % (0.0-5.0); LYMPHOCYTES % (MANUAL) 20 % (16-48); MONOCYTES % (MANUAL) 3 % (0-11.0); MYELOCYTES % 1 % (0-0); NEUTROPHILS % (MANUAL) 58 (42-76)
--- NOTE | 2021-04-01 15:04 | NUR ---
RN NOTES DR VENEGAS MADE ORDER FOR CT GUIDED PIGTAIL CATHETER PLACEMENT TODAY, ALL CONSENTS SIGNED. CALLED CT DEPT, SPOKE TO CHAVA AND SHE SAID THAT IT WILL NOT BE DONE TODAY BUT TOMORROW. SHE SAID THAT PT NEEDS NEW PT, PTT AND INR RESULTS W/C WAS ORDERED FOR TOMORROW. PT NEEDS G-TUBE FEED TO BE OFF POST MIDNIGHT. WILL ENDORSE.
[2021-04-01 16:00] VITALS: BP 113/60
--- NOTE | 2021-04-01 18:57 | NUR ---
SEALING MACHINE OPERATOR CLOSING NOTES PATIENT IN BED AWAKE, A/O X1. OPEN HER EYES, CONFUSED BUT FOLLOWS SIMPLE COMMANDS. PT WITH TRACH SHILEY #8 CONNECTED TO MECHANICAL VENTILATOR AT SETTINGS: AC TV 500 R 18 PEEP 0 FIO2:30%, TOLERATING SETTINGS WELL WITH NO SOB NOTED DURING SHIFT. TELEMONITOR READING SHOWS NSR WITH BBB'S AND OCCASIONAL PVC'S, HR ON THE 90'S. MIDLINE ON BRADY INTACT, PATENT WITH IVF OF D5W + KCL 40MEQ AT 100ML/HR INFUSING WELL. ON G-TUBE FEEDING OF GLUCERNA 1.2 @ 55CC/HR, TOLERATING WELL. ASPIRATION PRECAUTIONS MAINTAINED. SOMMER CATHETER IN PLACE DRAINING CLEAR YELLOW URINE VIA GRAVITY, SOMMER CARE DONE. PT TURNED AND REPOSITIONED Q 2HRS AND PRN. ALL NEEDS AND CARE PROVIDED WELL. SAFETY MEASURES IN PLACE: BED IS LOW AND WHEELS LOCKED, HOB KEEP ELEVATED, SIDE RAILS UP X2 AND CALL LIGHT WITHIN REACH. WILL ENDORSE JOSE DE JESUS TO NIGHT
--- NOTE | 2021-04-01 19:31 | NUR ---
CRIMINAL ANALYST NOTES PATIENT IN BED AWAKE. NO S/S OF APPARENT DISTRESS VENT DEPENDENT. NOT EXHIBITING PAIN VIA FLACC SCALE. CREDIT OPERATIONS SPECIALIST READING SINUS RHYTHM 82 WITH PVC. SOMMER DRAINING DARK LEONARDO YELLOW URINE. GTUBE NOTED RUNNING GLUCERNA 1.2 @55ML/HR. D5W WITH KCL 40MEQ RUNNING AT THIS TIME AT 100ML/HR. SAFETY IN PLACE. WILL CONTINUE TO MONITOR.
[2021-04-01 20:00] VITALS: BP 103/56
--- NOTE | 2021-04-01 23:20 | NUR ---
telecommunications administrator notes found patient lying in blood. found that chucks is soaked with blood. made charge nurse know. STAT CBC was ordered. will cont. to assess.
[2021-04-01 23:40] LABS: BASOPHILS % (AUTO) 0.1 % (0.0-2.0); EOSINOPHILS % (AUTO) 1.6 % (0.0-6.0); HEMATOCRIT 21 % (33-45); LYMPHOCYTES % (AUTO) 18.2 % (20.0-44.0); MEAN CORPUSCULAR HGB CONC 32 g/dl (31.0-36.0); MEAN CORPUSCULAR VOLUME 85 fL (82-100); MONOCYTES # (AUTO) 0.4 K/uL (0.1-1.30); MONOCYTES % (AUTO) 3.7 % (2.0-12.0); NEUTROPHILS # (AUTO) 8.6 K/uL (1.8-8.9); NEUTROPHILS % (AUTO) 76.4 % (43.0-81.0); PLATELET COUNT (AUTO) 158 K/uL (150-450); RED BLOOD CELL COUNT(AUTO) 2.41 MIL/uL (4.0-5.2); WHITE BLOOD COUNT (AUTO) 11.2 K/uL (4.3-11.0)
--- NOTE | 2021-04-01 23:43 | NUR ---
answering service telephone operator note v/s as follows: bp- 87/48. p- 84. rr-18, t- 99.1, 98 pulse. will cont. to monitor. started on cooling ,measures
[2021-04-01 23:44] LABS: HEMOGLOBIN 6.5 g/dL (11.5-14.8)
[2021-04-02] VITALS (7 sets, daily range): BP systolic 79–95; BP diastolic 40–51
[2021-04-02 00:05] LABS: BAND % (MANUAL) 17 % (0.0-5.0); BASOPHILS % (MANUAL) 0 % (0.0-2.0); EOSINOPHILS % (MANUAL) 2 % (0-4); LYMPHOCYTES % (MANUAL) 20 % (16-48); METAMYELOCYTES % 10 % (0-0); NEUTROPHILS % (MANUAL) 48 (42-76)
[2021-04-02 00:07] LABS: MONOCYTES % (MANUAL) 3 % (0-11.0)
[2021-04-02] MEDS ORDERED: IV NS 0.9% 500 ML IV ONE ×3 (00:30→05:00)
--- NOTE | 2021-04-02 01:30 | NUR ---
telecommunications repairer notes blood transfusion started at this time. v/s as follows: bp- 89/45, heart rate 80, t- 97.9, and saturation at 99%. will recheck vs after 15 minutes.
--- NOTE | 2021-04-02 01:45 | NUR ---
telemarketer notes 15 minutes in to the blood transfusion -- patient stable. v/s stable, no significant drop or change in bp. no transfusion reaction noted. will recheck 60 minutes after. rate increased to 120 ml/hr.
[2021-04-02] MEDS: IPRATROPIUM NEB FS 0.5 MG/2.5 ML AMPUL.NEB NEB SCH ×4 (01:58→20:24)
[2021-04-02] MEDS: ALBUTEROL FS 2.5 MG/3 ML VIAL.NEB NEB SCH ×4 (01:58→20:24)
--- NOTE | 2021-04-02 02:57 | NUR ---
telecommunications field engineer notes 60 minutes in transfusion. bp 79/40, p- 77, t- 98.6, resp. rate 18. increased rate to 160 ml/hr. will cont. to monitor bp.
--- NOTE | 2021-04-02 03:25 | NUR ---
telephone solicitor supervisor notes rechecked patients bp after 30 minutes. still bp 79/45. Patient also have fresh bloody stool still. messaged Dr. Lea. still awaiting new orders.
--- NOTE | 2021-04-02 04:20 | NUR ---
television maintenance man notes blood transfusion ended at this time. v/s as follows: bp- 82/41, p- 73, rr-18, t- 98.9, saturation 100%. Awaiting for doctors order. No new order at this time.
--- NOTE | 2021-04-02 04:21 | NUR ---
RT NOTE PT REC'D TRACHED ON [facility] VENT ON AC MODE. PT SHOWS NO SIGNS OF RESP DISTRESS OR SOB. TRACH IS PATENT AND SECURED. ALARMS ARE SET AND AUDIBLE. VENT PLUGGED INTO RED OUTLET. AMBU BAG BEDSIDE. WILL CONTINUE TO MONITOR. Addendum: 04/02/21 at 0423 by JASMIN LIMA RT Amended: Links added.
[2021-04-02] MEDS: CEFEPIME 2 GM in IV D5W 100 ML IV SCH ×3 (05:23→21:36)
--- NOTE | 2021-04-02 06:53 | NUR ---
color television console monitor notes patient in bed with eyes closed, easy to arouse. non-verbal, eye opening to tactile stimuli and follows simple command. no s/s of apparent distress -- vent dependent. not exhibiting pain via FLACC. patient G-tube clamped -- NPO. tele box reading sinus rhythm 76 with bundle branch block, pvc, droplet, couplet. ortega draining dark berna urine with 800 uo. skin tx done. iv antibiotic still running at the moment. latest V/S 96/48, p-81, t-98.5, and saturation 98%. needs attended. all sched meds administered. will endorse care to morning shift rn.
--- NOTE | 2021-04-02 08:03 | NUR ---
MANAGER ENT OPENING NOTES RECEIVED PATIENT IN BED, EASY TO AROUSE. PT IS NONVERBAL. BREATHING IS EVEN AND UNLABORED. NO S/SX OF RESPIRATORY DISTRESS. NO SOB NOTED. PATIENT ON VENT SETTINGS OF NICCI #8. SETTINGS ARE A/C MODE, PEEP 0, FIO2 30%, TIDAL VOLUME 500. TELE MONITOR DETECTS SINUS RHYTHM WITH BBB WITH RATE AT. NO EVIDENCE OF PAIN AT THIS TIME VIA FLACC. IV ACCESS IN BRADY MIDLINE WITH D5 WITH KCL 40 MEQ AT 100 ML/HR. IV PATENT AND INTACT. SAFETY MEASURES IN PLACE: BED IN LOWEST, LOCKED POSITION, BRAKES ON, SIDERAILS UP x2. WILL CONTINUE TO MONITOR.
[2021-04-02] MEDS: METOPROLOL TARTRATE 25 MG TABLET GT SCH ×2 (08:15→16:16)
[2021-04-02] MEDS: PANTOPRAZOLE 40 MG/PACK PACK GT SCH (08:15)
[2021-04-02] MEDS: ASCORBIC ACID 500 MG TABLET GT SCH (08:15)
[2021-04-02 08:23] LABS: BASOPHILS % (AUTO) 0.2 % (0.0-2.0); EOSINOPHILS % (AUTO) 1.2 % (0.0-6.0); HEMATOCRIT 24 % (33-45); HEMOGLOBIN 7.6 g/dL (11.5-14.8); LYMPHOCYTES # (AUTO) 1.4 K/uL (0.8-4.8); LYMPHOCYTES % (AUTO) 13.9 % (20.0-44.0); MEAN CORPUSCULAR HGB CONC 32 g/dl (31.0-36.0); MEAN CORPUSCULAR VOLUME 85 fL (82-100); MONOCYTES # (AUTO) 0.3 K/uL (0.1-1.30); MONOCYTES % (AUTO) 3.1 % (2.0-12.0); NEUTROPHILS # (AUTO) 8.2 K/uL (1.8-8.9); NEUTROPHILS % (AUTO) 81.6 % (43.0-81.0); PLATELET COUNT (AUTO) 128 K/uL (150-450); RED BLOOD CELL COUNT(AUTO) 2.79 MIL/uL (4.0-5.2)
--- NOTE | 2021-04-02 08:25 | NUR ---
RN NOTES SPOKE W/ RADIOLOGY AND CONFIRMED PATIENT'S NPO STATUS POST MIDNIGHT; GT FEEDING OFF. LABS CURRENTLY PENDING. WILL CALL AGAIN TO INFORM MD PER RADIOLOGY.
--- NOTE | 2021-04-02 08:37 | NUR ---
RN NOTES SPOKE W/ DR. VENEGAS, INQUIRED ABOUT PROCEDURE FOR PATIENT. INFORMED RADIOLOGY AND REQUESTED TO CHANGE NAME OF PROCEDURE. PER RADIOLOGY, CURRENTLY WAITING FOR NURSE FOR PROCEDURE.
--- NOTE | 2021-04-02 08:38 | NUR ---
RN NOTES PATIENT WAS SEEN BY DR. PEREZ TODAY; MADE AWARE OF CURRENT H&H RESULT TODAY.
--- NOTE | 2021-04-02 08:54 | NUR ---
RN NOTES DR. VENEGAS IN THE UNIT TODAY AND MADE AWARE OF WHAT RADIOLOGY SAID.
[2021-04-02 09:55] LABS: HEMOGLOBIN 7.3 g/dL (11.5-14.8)
[2021-04-02 10:03] LABS: CALCIUM, SERUM 7.3 mg/dL (8.5-10.1); CREATININE 0.4 mg/dL (0.6-1.3); POTASSIUM 3.4 mmol/L (3.5-5.1)
[2021-04-02 11:06] LABS: BAND % (MANUAL) 19 % (0.0-5.0); EOSINOPHILS % (MANUAL) 2 % (0-4); LYMPHOCYTES % (MANUAL) 14 % (16-48); MONOCYTES % (MANUAL) 5 % (0-11.0); NEUTROPHILS % (MANUAL) 60 (42-76)
[2021-04-02] MEDS: POTASSIUM CL. PREMIX PERIPHER. 50 ML IV SCH ×2 (12:58→14:18)
--- NOTE | 2021-04-02 17:45 | NUR ---
RN NOTES SPOKE W/ RADIOLOGY ABOUT PROCEDURE; PER RADIOLOGY, TECH HAS BEEN ARRANGED AND WILL DO PROCEDURE TOMORROW. OK TO START FEEDING FOR NOW AND NPO POST MIDNIGHT. CHARGE NURSE AWARE.
[2021-04-02] MEDS: GLUCERNA 1.2 1,000 ML BOTTLE NG PRN (17:52)
--- NOTE | 2021-04-02 17:59 | NUR ---
LION TRAINER CLOSING NOTES PATIENT IN BED, ASLEEP, EASY TO AROUSE. PT IS NONVERBAL. BREATHING IS EVEN AND UNLABORED. NO S/SX OF RESPIRATORY DISTRESS. NO SOB NOTED. PATIENT ON VENT SETTINGS OF NICCI #8. SETTINGS ARE A/C MODE, PEEP 0, FIO2 30%, TIDAL VOLUME 500. TELE MONITOR DETECTS SINUS RHYTHM WITH BBB WITH RATE IN 70S. NO EVIDENCE OF PAIN AT THIS TIME VIA FLACC. IV ACCESS IN BRADY MIDLINE WITH NO FLUIDS RUNNING. IV PATENT AND INTACT. SOMMER CATHETER DRAINING CLEAR, YELLOW URINE. ALL NEEDS MET. SAFETY MEASURES IN PLACE: BED IN LOWEST, LOCKED POSITION, BRAKES ON, SIDERAILS UP x2. WILL ENDORSE TO ONCOMING SHIFT.
--- NOTE | 2021-04-02 19:42 | NUR ---
CHIEF STEWARD/STEWARDESS OPENING NOTES: RECEIVED PATIENT SLEEP IN BED AROUSABLE TO TACTILE STIMULI, PATIENT IS NONE VERBAL, OPEN NEYES, BED IN LOW POSITION, CALL LIGHTS WITHIN REACH, NO COMPLAIN OF PAIN AND DISCOMFORT, ON TELE MONITORING WITH READING OF SR WITH BBB -69, ON G TUBE FEEDING, OF GLUCERNA 1.2 @30ML PER HOUR, WITH BRADY MIDLINE ON D5W@KVO INFUSING WELL, PATIENT IS NPO POST MIDNIGHT, ON SOMMER CATHETER WITH URINE OUTPUT OF 30CC, HOB IS 45 DEGREE, ON VENTILATOR , PATIENT KEPT CLEAN AND DRY, ALL NEEDS MET, WILL CONTINUE TO MONITOR.
[2021-04-03] VITALS: BP 86/59
[2021-04-03] MEDS: ALBUTEROL FS 2.5 MG/3 ML VIAL.NEB NEB SCH ×4 (02:06→19:58)
[2021-04-03] MEDS: IPRATROPIUM NEB FS 0.5 MG/2.5 ML AMPUL.NEB NEB SCH ×4 (02:06→19:57)
[2021-04-03 04:00] VITALS: BP 100/88
[2021-04-03] MEDS: CEFEPIME 2 GM in IV D5W 100 ML IV SCH ×3 (05:20→21:29)
[2021-04-03] MEDS: IV D5/ 0.9% NACL 1,000 ML IV PRN ×2 (06:16→23:27)
--- NOTE | 2021-04-03 06:20 | NUR ---
RN NOTES: RECEIVED AN ORDER FROM DR SANTOS TO HOLD LOPRESSOR 25MG BID AND DUE TO PATIENT CONSISTENTLY LOW BP AND FOR ENDORSE TO DAY SHIFT TO CALL AND SEE DOCTOR IF THEY WANT TO DISCONTINUE ENDORSE TO INCOMING SHIFT.
[2021-04-03 06:44] LABS: BASOPHILS % (AUTO) 0.4 % (0.0-2.0); EOSINOPHILS % (AUTO) 1.3 % (0.0-6.0); HEMATOCRIT 23 % (33-45); HEMOGLOBIN 7.4 g/dL (11.5-14.8); LYMPHOCYTES # (AUTO) 1.4 K/uL (0.8-4.8); MEAN CORPUSCULAR HGB CONC 33 g/dl (31.0-36.0); MEAN CORPUSCULAR VOLUME 85 fL (82-100); MONOCYTES # (AUTO) 0.3 K/uL (0.1-1.30); NEUTROPHILS # (AUTO) 7.5 K/uL (1.8-8.9); NEUTROPHILS % (AUTO) 80.3 % (43.0-81.0); PLATELET COUNT (AUTO) 133 K/uL (150-450); RED BLOOD CELL COUNT(AUTO) 2.66 MIL/uL (4.0-5.2); WHITE BLOOD COUNT (AUTO) 9.3 K/uL (4.3-11.0)
--- NOTE | 2021-04-03 06:47 | NUR ---
GUIDE CRUISE CLOSING NOTE RECEIVED PATIENT AWAKE IN BED, BED IN LOW POSITION, CALL LIGHTS WITHIN REACH, NO COMPLAIN OF PAIN AND DISCOMFORT AT THIS TIME, ON NPO DUE TO SCHEDULE CT GUIDED PIGTAIL PLACEMENT IN AM PATIENT ON VENT, NO CHANGES IN CONDITION WAS OBSERVE, PATIENT HAS CONSISTENTLY LOW BP, DR SANTOS NOTIFIED WITH ORDER TO HOLD LOPRESSOR AND HAVE DAY SHIFT CALL, IF THEY WANT TO D/C, IV D5NS@75ML/HR DUE TO NPO STATUS, PATIENT REMAIN AWAKE AND EYES OPEN, AND ASYMPTOMATIC, PATIENT KEPT CLEAN AND DRY, ALL NEEDS MET, ENDORSE TO INCOMING SHIFT.
--- NOTE | 2021-04-03 07:36 | NUR ---
DIRECTOR OF SPORTS PERFORMANCE OPENING NOTE RECEIVED PATIENT AWAKE IN BED. PT IS NONVERBAL BUT OPENS EYES TO VERBAL STIMULI. PT IS ON VENT AND SETTINGS ARE AC MODE, FIO2 30%, TIDAL VOLUME 500, PEEP 0. BREATHING IS EVEN AND UNLABORED. NO EVIDENCE OF PAIN VIA FLACC SCALE. IV ACCESS IS BRADY MIDLINE RUNNING D5NS @ 75 ML/HR. G-TUBE FEEDING IS CURRENTLY BEING HELD DUE TO NPO STATUS FOR PROCEDURE DURING DAY. SAFETY MEASURES IN PLACE: BED IN LOWEST, LOCKED POSITION, BRAKES ON, SIDERAILS UP x2. CALL LIGHT WITHIN REACH. WILL CONTINUE TO MONITOR.
[2021-04-03 07:44] LABS: CREATININE 0.3 mg/dL (0.6-1.3); POTASSIUM 3.6 mmol/L (3.5-5.1)
[2021-04-03 08:00] VITALS: BP 90/45
[2021-04-03] MEDS: METOPROLOL TARTRATE 25 MG TABLET GT SCH ×2 (08:41→16:05)
[2021-04-03] MEDS: PANTOPRAZOLE 40 MG/PACK PACK GT SCH (08:42)
[2021-04-03] MEDS: ASCORBIC ACID 500 MG TABLET GT SCH (08:42)
[2021-04-03 12:00] VITALS: BP 83/53
--- NOTE | 2021-04-03 12:08 | NUR ---
RN NOTES SPOKE W/ RADIOLOGY AND CURRENTLY WAITING FOR ON-CALL RADIOLOGIST AND NURSE FOR PIGTAIL PLACEMENT PROCEDURE; WILL FOLLOW-UP LATER TODAY.
[2021-04-03 16:00] VITALS: BP 96/50
--- NOTE | 2021-04-03 18:24 | NUR ---
MAORI LIAISON ADVISER CLOSING NOTE RECEIVED PATIENT AWAKE IN BED. PT IS NONVERBAL BUT OPENS EYES TO VERBAL STIMULI. PT IS ON VENT AND SETTINGS ARE AC MODE, FIO2 30%, TIDAL VOLUME 500, PEEP 0. BREATHING IS EVEN AND UNLABORED. NO EVIDENCE OF PAIN VIA FLACC SCALE. TELE MONITOR READS SINUS RHYTHM WITH BUNDLE BRANCH BLOCKS WITH RATE RANGING FROM 65-75. IV ACCESS IS BRADY MIDLINE. IV ACCESS IS PATENT, INTACT, ANF FLUSHING WELL. NO EVIDENCE OF PAIN VIA FLACC SCALE. ALL NEEDS MET. PATIENT KEPT CLEAN AND DRY. SAFETY MEASURES IN PLACE: BED IN LOWEST, LOCKED POSITION, BRAKES ON, SIDERAILS UP x2. CALL LIGHT WITHIN REACH. WILL ENDORSE TO ONCOMING SHIFT.
--- NOTE | 2021-04-03 19:37 | NUR ---
MS TELE OPENING NOTES; RECEIVED PATIENT AWAKE IN BED, NONE VERBAL, OPEN EYES, INCONTINENT ON SOMMER CATHETER, WITH BRADY MIDLINE ON D5 NS @75ML PER HOUR, INFUSING WELL, PATIENT ON TRACH/VENT ON TELE MONITORING WITH READING OF SR-74 WITH BBBB, ASYMPTOMATIC, BED IN LOW POSITION, CALL LIGHTS WITHIN REACH, WILL CONTINUE TO MONITOR.
[2021-04-03 20:00] VITALS: BP 95/49
[2021-04-03] MEDS: GLUCERNA 1.2 1,000 ML BOTTLE NG PRN (21:41)
[2021-04-04] VITALS: BP 92/53
[2021-04-04] MEDS: MORPHINE SULFATE INJ 2 MG/ML DISP.SYRIN IV PRN (01:00)
[2021-04-04] MEDS: IPRATROPIUM NEB FS 0.5 MG/2.5 ML AMPUL.NEB NEB SCH ×4 (02:05→20:07)
[2021-04-04] MEDS: ALBUTEROL FS 2.5 MG/3 ML VIAL.NEB NEB SCH ×4 (02:05→20:07)
[2021-04-04 04:00] VITALS: BP 97/51
[2021-04-04] MEDS: CEFEPIME 2 GM in IV D5W 100 ML IV SCH ×3 (05:06→20:36)
--- NOTE | 2021-04-04 07:00 | NUR ---
MLT CLOSING NOTES: PATIENT AWAKE IN BED, BED IN LOEW POSTION, CALL LIGHTS WITHIN REACH, NO COMPLAIN OF PAIN AND DISCOMFORT, NO FACIAL GRIMACING OBSERVED, PATIENT ON GT FEEDING OF GLECERNA 1.2 AT 30ML/HR, ON D5 1/2 NSS@75 ML [ER HOUR INFUSING WELL, ON MONITORING FOR BLEEDING AND LOW BP, ON TELE MONITOR SR WITH BBB ASYMPTOMATIC, ON SOMMER CATH, BED INLOW POSTION, CALL LIGHTS WITHIN REACH, ENDORSE TO MORNING SHIFT.
--- NOTE | 2021-04-04 07:25 | NUR ---
CORN PICKER OPENING NOTE RECEIVED PATIENT AWAKE IN BED. PT IS NONVERBAL BUT OPENS EYES TO VERBAL STIMULI. PT IS ON VENT AND SETTINGS ARE AC MODE, FIO2 30%, TIDAL VOLUME 500, PEEP 0. BREATHING IS EVEN AND UNLABORED. TELE MONITOR DETECTS SINUS RHYTHM WITH PVCs AT RATE OF 77. NO EVIDENCE OF PAIN VIA FLACC SCALE. IV ACCESS IS BRADY MIDLINE RUNNING D5NS @ 75 ML/HR. SAFETY MEASURES IN PLACE: BED IN LOWEST, LOCKED POSITION, BRAKES ON, SIDERAILS UP x2. CALL LIGHT WITHIN REACH. WILL CONTINUE TO MONITOR.
[2021-04-04 08:00] VITALS: BP 87/50
[2021-04-04 08:23] LABS: CALCIUM, SERUM 8.2 mg/dL (8.5-10.1); CREATININE 0.3 mg/dL (0.6-1.3); POTASSIUM 3.4 mmol/L (3.5-5.1)
[2021-04-04] MEDS: PANTOPRAZOLE 40 MG/PACK PACK GT SCH (08:49)
[2021-04-04] MEDS: METOPROLOL TARTRATE 25 MG TABLET GT SCH ×2 (08:49→16:38)
[2021-04-04] MEDS: ASCORBIC ACID 500 MG TABLET GT SCH (08:50)
[2021-04-04] MEDS ORDERED: POTASSIUM CHLORIDE 20 MEQ POWDER PACKET GT SCH (09:30)
[2021-04-04 12:00] VITALS: BP 91/56
[2021-04-04 16:00] VITALS: BP 95/47
--- NOTE | 2021-04-04 17:43 | NUR ---
NOTES INSERTED NEW 16 ZIMBABWEAN SOMMER CATHETER BECAUSE OLD SOMMER CATHETER WAS LEAKING AND SOILED. DRAINING CLEAR, YELLOW URINE.
--- NOTE | 2021-04-04 18:15 | NUR ---
GRANITE INSTALLER CLOSING NOTE PATIENT AWAKE IN BED. PT IS NONVERBAL BUT OPENS EYES TO VERBAL STIMULI. PT IS ON VENT AND SETTINGS ARE AC MODE, FIO2 30%, TIDAL VOLUME 500, PEEP 0. BREATHING IS EVEN AND UNLABORED. NO EVIDENCE OF PAIN VIA FLACC SCALE THROUGHOUT THE SHIFT. TELE MONITOR READS SINUS RHYTHM WITH PVC'S WITH RATE RANGING FROM 65-75. IV ACCESS IS BRADY MIDLINE RUNNING D5NS AT 75 ML/HR. NO EVIDENCE OF PAIN VIA FLACC SCALE THROUGHOUT SHIFT. ALL NEEDS MET. PATIENT KEPT CLEAN AND DRY. SAFETY MEASURES IN PLACE: BED IN LOWEST, LOCKED POSITION, BRAKES ON, SIDERAILS UP x2. CALL LIGHT WITHIN REACH. WILL ENDORSE TO ONCOMING SHIFT.
[2021-04-04] MEDS: IV D5/ 0.9% NACL 1,000 ML IV PRN (18:32)
--- NOTE | 2021-04-04 19:26 | NUR ---
LABORATORY AIDE NOTES PATIENT AWAKE IN BED. PT IS NONVERBAL BUT OPENS EYES TO VERBAL STIMULI. PT IS ON VENT AND SETTINGS ARE AC MODE, FIO2 30%, TIDAL VOLUME 500, PEEP 0. BREATHING IS EVEN AND UNLABORED. NO EVIDENCE OF PAIN VIA FLACC SCALE THROUGHOUT THE SHIFT. TELE MONITOR READS SINUS RHYTHM WITH PVC'S WITH RATE RANGING FROM 65-75. IV ACCESS IS BRADY MIDLINE RUNNING D5NS AT 75 ML/HR. NO EVIDENCE OF PAIN VIA FLACC SCALE AT THIS TIME. ALL NEEDS MET. PATIENT KEPT CLEAN AND DRY. SAFETY MEASURES IN PLACE: BED IN LOWEST, LOCKED POSITION, BRAKES ON, SIDERAILS UP x2. CALL LIGHT WITHIN REACH. WILL CONTINUE TO MONITOR.
[2021-04-04 20:00] VITALS: BP 108/60
[2021-04-05] VITALS (34 sets, daily range): BP systolic 68–139; BP diastolic 19–92
[2021-04-05] MEDS: IPRATROPIUM NEB FS 0.5 MG/2.5 ML AMPUL.NEB NEB SCH ×4 (01:52→20:28)
[2021-04-05] MEDS: ALBUTEROL FS 2.5 MG/3 ML VIAL.NEB NEB SCH ×4 (01:52→20:28)
[2021-04-05] MEDS: CEFEPIME 2 GM in IV D5W 100 ML IV SCH (04:05)
--- NOTE | 2021-04-05 06:43 | NUR ---
SNAPPER ON NOTES PATIENT AWAKE IN BED. PT IS NONVERBAL BUT OPENS EYES TO VERBAL STIMULI. PT IS ON VENT AND SETTINGS ARE AC MODE, FIO2 30%, TIDAL VOLUME 500, PEEP 0. BREATHING IS EVEN AND UNLABORED. NO EVIDENCE OF PAIN VIA FLACC SCALE THROUGHOUT THE SHIFT. TELE MONITOR READS SINUS RHYTHM WITH PVC'S IV ACCESS IS BRADY MIDLINE RUNNING D5NS AT 75 ML/HR. NO EVIDENCE OF PAIN VIA FLACC SCALE AT THIS TIME.PT ON GT FEEDING GLUCERNA 1.2 @ 55ML/HR ALL NEEDS MET. PATIENT KEPT CLEAN AND DRY. SAFETY MEASURES IN PLACE: BED IN LOWEST, LOCKED POSITION, BRAKES ON, SIDERAILS UP x2. CALL LIGHT WITHIN REACH. WILL ENDORSE CARE TO DAY SHIFT NURSE.
[2021-04-05 07:24] LABS: CALCIUM, SERUM 8.1 mg/dL (8.5-10.1); CREATININE 0.4 mg/dL (0.6-1.3); POTASSIUM 2.9 mmol/L (3.5-5.1)
--- NOTE | 2021-04-05 08:22 | NUR ---
ABNORMAL ECG MADE AWARE OF NEW EPISODE OF AFIB AND K 2.9. ORDER RECEIVED. WILL CARRY OUT
--- NOTE | 2021-04-05 08:27 | NUR ---
DR CHARISSE REYES MADE AWARE OF ABNORMAL ECG. ORDERS RECEIVED. WILL CARRY OUT.
[2021-04-05] MEDS: ASCORBIC ACID 500 MG TABLET GT SCH (08:49)
[2021-04-05] MEDS: METOPROLOL TARTRATE 25 MG TABLET GT SCH ×2 (08:50→17:00)
[2021-04-05] MEDS: PANTOPRAZOLE 40 MG/PACK PACK GT SCH (08:50)
[2021-04-05] MEDS: POTASSIUM CL. PREMIX PERIPHER. 50 ML IV SCH ×9 (09:24→23:46)
[2021-04-05] MEDS ORDERED: POTASSIUM CHLORIDE 10 MEQ/50 ML PREMIXED IVPB FOR PERIPHERAL LINE IV ONE (09:30)
--- NOTE | 2021-04-05 14:18 | NUR ---
PAGED DR MCQUEEN REGARDING HYPOTENSION 76/39 AND VTACH [address] NELSON ALSO MADE AWARE. ORDERS RECEIVED. WILL CARRY OUT.
[2021-04-05] MEDS ORDERED: IV NS 0.9% 250 ML IV ONE ×2 (14:30→15:00)
[2021-04-05] MEDS: CEFTRIAXONE 2 G in IV D5W 100 ML IV SCH (15:35)
[2021-04-05 16:15] LABS: BASOPHILS % (AUTO) 0.4 % (0.0-2.0); EOSINOPHILS % (AUTO) 1.2 % (0.0-6.0); HEMATOCRIT 27 % (33-45); HEMOGLOBIN 8.5 g/dL (11.5-14.8); LYMPHOCYTES # (AUTO) 1.5 K/uL (0.8-4.8); LYMPHOCYTES % (AUTO) 20.3 % (20.0-44.0); MEAN CORPUSCULAR HGB CONC 32 g/dl (31.0-36.0); MEAN CORPUSCULAR VOLUME 88 fL (82-100); MONOCYTES % (AUTO) 0.3 % (2.0-12.0); NEUTROPHILS # (AUTO) 5.7 K/uL (1.8-8.9); NEUTROPHILS % (AUTO) 77.8 % (43.0-81.0); PLATELET COUNT (AUTO) 165 K/uL (150-450); RED BLOOD CELL COUNT(AUTO) 3.04 MIL/uL (4.0-5.2); WHITE BLOOD COUNT (AUTO) 7.3 K/uL (4.3-11.0)
[2021-04-05 16:40] LABS: BAND % (MANUAL) 28 % (0.0-5.0); EOSINOPHILS % (MANUAL) 2 % (0-4); LYMPHOCYTES % (MANUAL) 15 % (16-48); METAMYELOCYTES % 3 % (0-0); MONOCYTES % (MANUAL) 2 % (0-11.0); NEUTROPHILS % (MANUAL) 50 (42-76)
--- NOTE | 2021-04-05 17:20 | NUR ---
PT TRANSFERRED TO ICU DR NELSON AND CHARISSE AT BEDSIDE. REPORTED HYPOTENSIONS PERSISTENT AFTER TREATMENT. REPORT GIVEN TO DA WORLEY. PT TRANSFERRED WITH HEART MONITOR AND 02 ACCOMPANIED BY RT.
[2021-04-05] MEDS: IV D5/ 0.9% NACL 1,000 ML IV PRN (17:58)
[2021-04-05] MEDS ORDERED: IV NS 0.9% 500 ML BAG IV ONE (18:00)
--- NOTE | 2021-04-05 18:00 | NUR ---
RN NOTES PATIENT TRANSFERRED FROM MED/SURGE UNIT WITH DX OF HYPOTENSION. PATIENT TRACHEA/VENT, PATIENT . NON VERBAL, AWAKE, FOLLOW DIRECTION. PER Dr VENEGAS ORDER STARTED NS 500 ML BLOUSE X1, AND AFTER START LEVOPHED IF BP STILL LOW. ORDER TAKEN AND CARRIED OUT. SKIN ASSESSMENT DONE. PATIENT HAS SACRAL WOUND, AND RIGHT INNER THIGH WOUND APPLIED Z-GUARD, AND MEPILEX. WOUND CONSULT TRIGGERED. PATIENT DUE CARE DONE, MEDICATION ADMINISTERED. PATIENT HAS NEW INSERTION OF RIGHT UPPER CHEST PIG TALE SURGICAL DRAINAGE, OUTPUT WAS MILKY 1950 ML. SOMMER DRAINING VIA GRAVITY, RUNNING GLUCERNA 1.2 @55ML/HR, NO RESIDUAL. IV ACCESS ON LEFT UA MIDLINE, ASSIST TURN AND REPOSTION Q 2 HR. KEEP HOB ELEVATED FOR ASPIRATION PRECAUTION. ENDORSED ONCOMING NURSE JOSE DE JESUS.
[2021-04-05] MEDS: GLUCERNA 1.2 1,000 ML BOTTLE PEG SCH (18:28)
[2021-04-05] MEDS: NOREPINEPHRINE 8 MG in IV NS 0.9% 242 ML IV PRN (19:05)
[2021-04-05] MEDS: IV NS 0.9% 250 ML IV PRN (19:12)
--- NOTE | 2021-04-05 19:25 | NUR ---
ICU/TOY ASSEMBLY SUPERVISOR RECIEVED REPORT FROM DAY SHIFT NURSE. SEE FLOWSHEET FOR ASSESSMENT, ALONG WITH SKIN ISSUES THAT ARE ADDRESSED ON THE FLOWSHEET ALONG WITH INTERVENTIONS. THERE ARE IV DRIPS WHICH ARE ADDRESSED ON IV SPREAD SHEET. PT WAS TURNED AND REPOSITIONED FOR COMFORT AND CARE.
[2021-04-05] MEDS: ACETAMINOPHEN 650 MG/20.3 ML UDC NG PRN (20:26)
--- NOTE | 2021-04-05 20:30 | NUR ---
ICU/ASSIGNMENT MANAGER PT WAS GIVEN TYLENOL VIA G/TUBE FOR FLACC SCALE 4/10. WILL CONTINUE TO MONITOR THIS PT'S PAIN.
--- NOTE | 2021-04-05 22:30 | NUR ---
ICU/COKE PRODUCTION HEATER PT COMPLAINED ABOUT PAIN WHICH APPEARS TO BE 8/10 USING THE FLACC SCALE. NOTIFED CHARGE NURSE WHO THEN GAVE MORPHINE IVP PRN. WILL CONTINUE TO MONITOR THIS PT.
[2021-04-05] MEDS: MORPHINE SULFATE INJ 2 MG/ML DISP.SYRIN IV PRN (22:32)
[2021-04-06] VITALS (66 sets, daily range): BP systolic 81–135; BP diastolic 33–78
--- NOTE | 2021-04-06 | NUR ---
ICU/THERAPY ADMINISTRATIVE ASSISTANT PT WAS GIVEN ORAL CARE AT THIS TIME ALONG WITH PM CARE. PT TOLERATED THIS WELL, PT REMAINS ON CURRENT VENT SETTINGS WITH SATURATION AT 98-100%. PT WAS TURNED AND REPOSITIONED FOR COMFORT AND CARE. NO ACUTE DISTRESS SEEN AT THIS TIME. WILL CONTINUE TO MONITOR THIS PT.
[2021-04-06] MEDS: POTASSIUM CL. PREMIX PERIPHER. 50 ML IV SCH ×5 (01:00→13:41)
[2021-04-06] MEDS: IPRATROPIUM NEB FS 0.5 MG/2.5 ML AMPUL.NEB NEB SCH ×4 (02:21→19:05)
[2021-04-06] MEDS: ALBUTEROL FS 2.5 MG/3 ML VIAL.NEB NEB SCH ×4 (02:21→19:05)
[2021-04-06] MEDS: IV D5/ 0.9% NACL 1,000 ML IV PRN ×2 (05:39→18:30)
[2021-04-06] MEDS: NOREPINEPHRINE 8 MG in IV NS 0.9% 242 ML IV PRN (05:39)
--- NOTE | 2021-04-06 05:45 | NUR ---
ICU/BOOM TRUCK DRIVER PT WAS GIVEN ORAL CARE AT THIS TIME ALONG WITH AM CARE. PT TOLERATED THIS WELL, PT REMAINS ON CURRENT VENT SETTINGS WITH SATURATION AT 98-100%. AT THIS TIME WOUND CARE WAS DONE. PT WAS TURNED AND REPOSITIONED FOR COMFORT AND CARE. NO ACUTE DISTRESS SEEN AT THIS TIME. WILL CONTINUE TO MONITOR THIS PT.
--- NOTE | 2021-04-06 06:50 | NUR ---
ICU/AIR DEFENSE ARTILLERY SENIOR SERGEANT/ REPORT GIVEN TO DAY NURSE FOR CONTINUITY OF CARE.
--- NOTE | 2021-04-06 08:00 | NUR ---
PROPERTY AND EQUIPMENT CLERK PT AWAKE DOES NOT FOLLOW COMMANDS. SUCTIONED COPIOUS AMOUNT THICK GOODRICH SECRETIONS. SPO2 HIG 90'S ON CURRENT SETTING. GT FLUSHED WITH WATER.
--- NOTE | 2021-04-06 09:00 | NUR ---
WOUND CARE CONSULT/FOLLOW UP: PT PRESENTS WITH SACRAL DEEP TISSUE INJURY WHICH WAS NOTED TO BE PRESENT ON ADMISSION DARK DISCOLORATION IN ADMISSION PHOTO WITH SURROUNDING SCARRING. DEEP TISSUE INJURY IS NOW IN EVOLUTION. PT NOTED TO BE INCONTINENT OF LOOSE STOOL. THERE IS ALSO INCONTINENCE ASSOCIATED SKIN DAMAGE TO RT MEDIAL THIGH. RECOMMENDATIONS MADE FOR SKIN PROTECTION AND WOUND CARE. 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 PT IS ON FIRST STEP [facility] AIRLOSS MATTRESS. RT CHEST WALL TUBE NOTED WITH DRAINAGE CONTAINER. Addendum: 04/06/21 at 0903 by EDA PERALES WNDNU Amended: Links added.
[2021-04-06] MEDS: METOPROLOL TARTRATE 25 MG TABLET GT SCH (10:25)
[2021-04-06] MEDS: PANTOPRAZOLE 40 MG/PACK PACK GT SCH (10:25)
[2021-04-06] MEDS: ASCORBIC ACID 500 MG TABLET GT SCH (10:43)
[2021-04-06] MEDS: ENOXAPARIN SODIUM 40 MG/0.4 ML DISP.SYRIN SQ SCH (11:49)
[2021-04-06] MEDS: CEFTRIAXONE 2 G in IV D5W 100 ML IV SCH (11:53)
--- NOTE | 2021-04-06 12:00 | NUR ---
PROPERTY INSURANCE AGENT SUCTIONED. WATER FLUSHES DONE.
--- NOTE | 2021-04-06 16:00 | NUR ---
EXERCISE PHYSIOLOGY PROFESSOR WATER FLUSHES DONE. CLEANED AND REPOSITIONED. SUCTIONED COPIOUS AMOUNT THICK GOODRICH SECRETIONS. PIGTAIL DRAIN WITH SMALL AMOUNT GOODRICH DRAINAGE.
[2021-04-06] MEDS: MORPHINE SULFATE INJ 2 MG/ML DISP.SYRIN IV PRN (17:04)
--- NOTE | 2021-04-06 17:08 | NUR ---
RECEIVED PT ON BED, AWAKE DOES NOT FOLLOW COMMAND ON TRACH/VENT SETTING PER MD FIO2 30% SPO2 98% ON TELE SR HR IN 70'S WITH PVC AND BBB , HAVE BRADY ML WITH ONGOING D5NS@ 75ML/HR INFUSING WELL ALSO LEVO @ 0.06 MCG/KG/MIN ,GTUBE IN PLACE WITH ONGOING GLUCERNA @ 55ML/HR RESIDUAL WAS CHECKED 5ML SOMMER DRAINING TO GRAVITY,HAVE R CHEST PIGTAIL DRAIN WITH MILK COLORED DRAINAGE BED LOCKED AND IN LOWEST POSITION,SIDE RAILS UP X2 WILL CONTINUE TO MONITOR .
[2021-04-06] MEDS: GLUCERNA 1.2 1,000 ML BOTTLE PEG SCH (17:41)
--- NOTE | 2021-04-06 19:15 | NUR ---
ICU/LOADING MANAGER RECIEVED REPORT FROM DAY SHIFT NURSE. SEE FLOWSHEET FOR ASSESSMENT, ALONG WITH SKIN ISSUES THAT ARE ADDRESSED ON THE FLOWSHEET ALONG WITH INTERVENTIONS. THERE ARE IV DRIPS WHICH ARE ADDRESSED ON IV SPREAD SHEET. PT WAS TURNED AND REPOSITIONED FOR COMFORT AND CARE.
--- NOTE | 2021-04-06 21:50 | NUR ---
ICU/YARN WASHER PT WAS GIVEN ORAL CARE AT THIS TIME ALONG WITH PM CARE. PT TOLERATED THIS WELL, PT REMAINS ON CURRENT VENT SETTINGS WITH SATURATION AT 98-100%. PT WAS TURNED AND REPOSITIONED FOR COMFORT AND CARE. NO ACUTE DISTRESS SEEN AT THIS TIME. WILL CONTINUE TO MONITOR THIS PT.
--- NOTE | 2021-04-06 22:45 | NUR ---
ICU/INCLUSION SPECIALIST INCREASED LEVO FOR BY CHARGE NURSE FOR LOW BP 83/43. WILL CONTINUE TO MONITOR THIS PT AND HER BLOOD PRESSURE.
[2021-04-07] VITALS (77 sets, daily range): BP systolic 85–125; BP diastolic 40–74
--- NOTE | 2021-04-07 00:20 | NUR ---
ICU/FIRE EXTINGUISHER MECHANIC PT WAS TURNED AND REPOSITIONED FOR COMFORT AND CARE. NO ACUTE DISTRESS SEEN AT THIS TIME. WILL CONTINUE TO MONITOR THIS PT.
[2021-04-07] MEDS: ALBUTEROL FS 2.5 MG/3 ML VIAL.NEB NEB SCH ×4 (01:44→19:33)
[2021-04-07] MEDS: IPRATROPIUM NEB FS 0.5 MG/2.5 ML AMPUL.NEB NEB SCH ×4 (01:44→19:33)
[2021-04-07] MEDS: NOREPINEPHRINE 8 MG in IV NS 0.9% 242 ML IV PRN (02:19)
[2021-04-07] MEDS: IV NS 0.9% 250 ML IV PRN (03:23)
--- NOTE | 2021-04-07 03:30 | NUR ---
ICU/LOW VOLTAGE ELECTRICIAN PT WAS GIVEN ORAL CARE AT THIS TIME ALONG WITH AM CARE. PT TOLERATED THIS WELL, PT REMAINS ON CURRENT VENT SETTINGS WITH SATURATION AT 98-100%. AT THIS TIME WOUND CARE WAS DONE. PT WAS TURNED AND REPOSITIONED FOR COMFORT AND CARE. NO ACUTE DISTRESS SEEN AT THIS TIME. WILL CONTINUE TO MONITOR THIS PT.
[2021-04-07 04:35] LABS: BASOPHILS # (AUTO) 0.1 K/uL (0.0-0.2); BASOPHILS % (AUTO) 0.7 % (0.0-2.0); EOSINOPHILS % (AUTO) 0.7 % (0.0-6.0); HEMATOCRIT 23 % (33-45); HEMOGLOBIN 7.6 g/dL (11.5-14.8); LYMPHOCYTES # (AUTO) 1.2 K/uL (0.8-4.8); LYMPHOCYTES % (AUTO) 11.7 % (20.0-44.0); MEAN CORPUSCULAR HGB CONC 33 g/dl (31.0-36.0); MEAN CORPUSCULAR VOLUME 87 fL (82-100); MONOCYTES # (AUTO) 0.3 K/uL (0.1-1.30); MONOCYTES % (AUTO) 2.9 % (2.0-12.0); NEUTROPHILS # (AUTO) 8.8 K/uL (1.8-8.9); PLATELET COUNT (AUTO) 167 K/uL (150-450); RED BLOOD CELL COUNT(AUTO) 2.68 MIL/uL (4.0-5.2); WHITE BLOOD COUNT (AUTO) 10.5 K/uL (4.3-11.0)
[2021-04-07 04:49] LABS: CALCIUM, SERUM 7.6 mg/dL (8.5-10.1); CREATININE 0.2 mg/dL (0.6-1.3); MAGNESIUM 1.7 mg/dL (1.8-2.4); PHOSPHORUS 1.8 mg/dL (2.5-4.9); POTASSIUM 3.2 mmol/L (3.5-5.1)
[2021-04-07] MEDS: IV D5/ 0.9% NACL 1,000 ML IV PRN ×2 (05:05→18:08)
[2021-04-07] MEDS: GLUCERNA 1.2 1,000 ML BOTTLE PEG SCH ×2 (06:27→21:49)
--- NOTE | 2021-04-07 08:00 | NUR ---
FRONT END DRIVER RECEIVED PT AWAKE, ABLE TO TRACK, DOES NOT ATTEMPT TO SPEAK. LEVOPHED INFUSING PER CENTRAL LINE. BP STABLE. WILL TITRATE LEVO. GT WITH TF. SMALL AMOUNT RESIDUALS ASPIRATED FROM GT. WILL CONTINUE TF. GT FLUSHED WITH WATER.
[2021-04-07] MEDS: PANTOPRAZOLE 40 MG/PACK PACK GT SCH (08:50)
[2021-04-07] MEDS: ASCORBIC ACID 500 MG TABLET GT SCH (08:50)
[2021-04-07] MEDS: ENOXAPARIN SODIUM 40 MG/0.4 ML DISP.SYRIN SQ SCH (08:51)
[2021-04-07] MEDS ORDERED: POTASSIUM CHLORIDE 20 MEQ POWDER PACKET NG SCH (10:00)
--- NOTE | 2021-04-07 10:00 | NUR ---
TERRITORY SERVICE REPRESENTATIVE SUCTIONED COPIOUS AMOUNT THICK WHITE SECRETIONS. PIGTAIL CHEST TUBE DRAINING SEROUS THIN GOODRICH FLUID INTO COLLECTION BAG. GOOD URINE OUTPUT.
[2021-04-07] MEDS: MORPHINE SULFATE INJ 2 MG/ML DISP.SYRIN IV PRN (10:20)
[2021-04-07] MEDS ORDERED: Magnesium 1GM/D5W 100ML PREMIX 100 ML IV SCH (10:30)
--- NOTE | 2021-04-07 12:00 | NUR ---
STRETCHER LEVELER OPERATOR HELPER LEVOPHED TITRATED DOWN. TRANSIENT DROP IN BP. REMAINS AWAKE BUT NONVERBAL, MOVING UPPER EXTREMITIES AT WILL. GT FLUSHED WITH WATER. SUCTIONED COPIOUS AMOUNT THICK GOODRICH SECRETIONS.
[2021-04-07] MEDS: CEFTRIAXONE 2 G in IV D5W 100 ML IV SCH (12:08)
[2021-04-07] MEDS: VANCOMYCIN 1 GM in IV D5W 250 ML IV SCH ×2 (12:08→22:35)
[2021-04-07] MEDS ORDERED: Sodium Phosphate 30 MMOL in IV NS 0.9% 250 ML IV SCH (16:00)
--- NOTE | 2021-04-07 19:20 | NUR ---
ICU/CENTRAL STERILE TECHNICIAN RECIEVED REPORT FROM DAY SHIFT NURSE. SEE FLOWSHEET FOR ASSESSMENT, ALONG WITH SKIN ISSUES THAT ARE ADDRESSED ON THE FLOWSHEET ALONG WITH INTERVENTIONS. THERE ARE NO IV DRIPS WHICH NEED TO BE ADDRESSED ON IV SPREAD SHEET. PT WAS TURNED AND REPOSITIONED FOR COMFORT AND CARE. WILL CONTINUE TO MONITOR THIS PT
--- NOTE | 2021-04-07 20:30 | NUR ---
ICU/INSTRUCTOR WATCH ASSEMBLY PT'S SATURATION IS IN THE LOW TO MID 80'S, RT WAS STANDING BY, INCREASED THE FI02 TO 50% FROM 30%. WILL CONTINUE TO MONITOR THIS PT. SATURATION APPEARS TO HAVE INCREASED.
--- NOTE | 2021-04-07 23:10 | NUR ---
ICU/SUPERINTENDENT TRACK PT WAS GIVEN ORAL CARE AT THIS TIME ALONG WITH PM CARE. PT TOLERATED THIS WELL, PT REMAINS ON CURRENT VENT SETTINGS WITH SATURATION AT 98-100%. . PT WAS TURNED AND REPOSITIONED FOR COMFORT AND CARE. NO ACUTE DISTRESS SEEN AT THIS TIME. WILL CONTINUE TO MONITOR THIS PT.
[2021-04-08] VITALS (59 sets, daily range): BP systolic 88–129; BP diastolic 32–83
[2021-04-08] MEDS: BISACODYL SUPP (10 MG) 10 MG/SUPP.RECT SUPP.RECT RC PRN (00:45)
[2021-04-08] MEDS: ALBUTEROL FS 2.5 MG/3 ML VIAL.NEB NEB SCH ×4 (01:10→19:41)
[2021-04-08] MEDS: IPRATROPIUM NEB FS 0.5 MG/2.5 ML AMPUL.NEB NEB SCH ×4 (01:10→19:41)
--- NOTE | 2021-04-08 03:00 | NUR ---
ICU/WORM RAISER PT HAS NOT HAD A BOWEL MOVEMENT THAT HAS BEEN DOCUMENTED IN A FEW WEEKS. PT WAS GIVEN SUPPOSITORY FOR THIS MID SHIFT. PT HAS POSITIVE RESULTS WITH A HARD FORM STOOL AMOUNT. WILL MONITOR THIS PT.
[2021-04-08] MEDS: IV NS 0.9% 250 ML IV PRN (03:44)
[2021-04-08] MEDS: IV D5/ 0.9% NACL 1,000 ML IV PRN ×2 (03:45→16:04)
[2021-04-08 03:57] LABS: CALCIUM, SERUM 7.4 mg/dL (8.5-10.1); CREATININE 0.4 mg/dL (0.6-1.3); POTASSIUM 3.7 mmol/L (3.5-5.1)
--- NOTE | 2021-04-08 04:10 | NUR ---
ICU/DROP HAMMER SETTER UP PT APPEARED TO BE HAVING MANY PVC'S AND SOME PAUSES. ELECTRODES WERE CHANGED AND LEADS CHANGED, PT STILL HAVING PVC'S. STAT LABS DONE FOR ANY ABNORMAL RESULTS.
[2021-04-08 04:17] LABS: BILIRUBIN,TOTAL 0.3 mg/dL (0.2-1.0); MAGNESIUM 1.8 mg/dL (1.8-2.4); PHOSPHORUS 3.1 mg/dL (2.5-4.9); TOTAL PROTEIN, SERUM 5.4 g/dL (6.4-8.2)
[2021-04-08 04:22] LABS: ALBUMIN 0.7 g/dL (3.4-5.0)
[2021-04-08 04:32] LABS: BASOPHILS # (AUTO) 0.1 K/uL (0.0-0.2); BASOPHILS % (AUTO) 0.7 % (0.0-2.0); EOSINOPHILS % (AUTO) 0.4 % (0.0-6.0); HEMATOCRIT 23 % (33-45); HEMOGLOBIN 7.5 g/dL (11.5-14.8); LYMPHOCYTES # (AUTO) 1.2 K/uL (0.8-4.8); LYMPHOCYTES % (AUTO) 10.3 % (20.0-44.0); MEAN CORPUSCULAR HGB CONC 32 g/dl (31.0-36.0); MEAN CORPUSCULAR VOLUME 87 fL (82-100); MONOCYTES # (AUTO) 0.3 K/uL (0.1-1.30); MONOCYTES % (AUTO) 2.6 % (2.0-12.0); NEUTROPHILS # (AUTO) 9.8 K/uL (1.8-8.9); PLATELET COUNT (AUTO) 170 K/uL (150-450); RED BLOOD CELL COUNT(AUTO) 2.67 MIL/uL (4.0-5.2); WHITE BLOOD COUNT (AUTO) 11.4 K/uL (4.3-11.0)
--- NOTE | 2021-04-08 05:00 | NUR ---
ICU/CHARGEMASTER ANALYST PT HAD ABNORMAL LAB OF ALBUMIN 0.7, ELEVATOR PILOT ANDONIAN CALLED ABOUT THIS. SAID IT'S CHRONIC AND TO HAVE DAY SHIFT ADDRESS IT.
--- NOTE | 2021-04-08 06:32 | NUR ---
ICU/BELT FIXER PT CONTINUES TO HAVE POSITIVE RESULTS FROM THE STOOL SOFTENER. WILL CONTINUE TO MONITOR THIS PT.
--- NOTE | 2021-04-08 07:05 | NUR ---
RECEIVED PT ON BED AWAKE ON TRACH VENT SETTING PER MD FIO2 40% SPO2 99% NO SIGN OF DISTRESS OR PAIN NOTED, BEDSIDE MONITOR READS SINUS RHYTHM 77 WITH BBB AND PVC'S HAVE BRADY WITH D5NS @ 80ML INFUSING WELL, HAVE GTUBE IN PLACE WITH ONGOING GLUCERNA @ 55ML/HR HAVE SOMMER IN PLACE WITH YELLOW URINE DRAINING VIA GRAVITY, BED ON LOWEST POSITION AND LOCKED SIDE RAILS UP X2 CALL LIGHT WITHIN REACH WILL CONT TO MONITOR
--- NOTE | 2021-04-08 07:18 | NUR ---
ICU/CONCRETE FLOOR INSTALLER REPORT GIVEN TO DAY NURSE STACIA.
[2021-04-08] MEDS: ASCORBIC ACID 500 MG TABLET GT SCH (08:33)
[2021-04-08] MEDS: PANTOPRAZOLE 40 MG/PACK PACK GT SCH (08:33)
[2021-04-08] MEDS: ENOXAPARIN SODIUM 40 MG/0.4 ML DISP.SYRIN SQ SCH (08:34)
[2021-04-08] MEDS: VANCOMYCIN 1 GM in IV D5W 250 ML IV SCH ×2 (10:04→23:38)
--- NOTE | 2021-04-08 12:15 | NUR ---
RN NOTES RECEIVED PT ON BED, VENT/TRACH DEPENDENT , TOLERATING VENT SETTING WELL, O2 SAT WNL, SBP IN LOW 90'S , ON TELE SR WITH BBB AND PVC'S , TF GLUCERNA AT 55CC/HR VIA GT, NO RESIDUAL NOTED, IVF AT 80CC /HR RUNNING , CONTINUE TO MONITOR .
[2021-04-08] MEDS: CEFTRIAXONE 2 G in IV D5W 100 ML IV SCH (12:33)
[2021-04-08] MEDS: NOREPINEPHRINE 8 MG in IV NS 0.9% 242 ML IV PRN (12:36)
--- NOTE | 2021-04-08 14:57 | NUR ---
[facility] Conservatorship : EVELINA received call from Public Guardian's office :Jose Rafael,duty worker [phone] stating that this pt. will be having a court hearing on 04/12/2021 9:30 am [facility] Conservatorship. Jose Rafael will email details on how to assist pt. with logging into court hearing electronically. The pt.'s Conservator: Cale Kim from Public Guardian's office.
--- NOTE | 2021-04-08 18:21 | NUR ---
RN NOTES LEVO AT .O2 MCG/KG/MIN RUNNING FOR BP SUPPORT. TRACH CARE DONE PRN, IVF AT 80CC/HR RUNNING , SR UP x3,CALL LIGHT WITHIN EASY REACH, BED LOCKED AND IN LOWEST POSITION, WILL ENDORSE TO FLIGHT RESERVATIONS MANAGER NURSE FOR CONTINUITY OF CARE.
--- NOTE | 2021-04-08 19:55 | NUR ---
Received patient trached sherif 8xlt on vent. No resp distress. Patient tolerating vent settings. Vent alarms set and audible. Trach secured, cuff elevator repairer. Continue to monitor. Addendum: 04/08/21 at 1957 by CAROLINA ORTIZ RT Amended: Links added.
[2021-04-09] VITALS (61 sets, daily range): BP systolic 78–156; BP diastolic 36–85
[2021-04-09] MEDS: IPRATROPIUM NEB FS 0.5 MG/2.5 ML AMPUL.NEB NEB SCH ×4 (01:07→19:39)
[2021-04-09] MEDS: ALBUTEROL FS 2.5 MG/3 ML VIAL.NEB NEB SCH ×4 (01:07→19:40)
[2021-04-09] MEDS: IV D5/ 0.9% NACL 1,000 ML IV PRN ×2 (04:06→17:59)
[2021-04-09 04:27] LABS: BASOPHILS # (AUTO) 0.1 K/uL (0.0-0.2); BASOPHILS % (AUTO) 0.8 % (0.0-2.0); EOSINOPHILS % (AUTO) 0.6 % (0.0-6.0); HEMATOCRIT 22 % (33-45); HEMOGLOBIN 7.1 g/dL (11.5-14.8); LYMPHOCYTES % (AUTO) 8.6 % (20.0-44.0); MEAN CORPUSCULAR HGB CONC 32 g/dl (31.0-36.0); MEAN CORPUSCULAR VOLUME 87 fL (82-100); MONOCYTES # (AUTO) 0.5 K/uL (0.1-1.30); MONOCYTES % (AUTO) 4.3 % (2.0-12.0); NEUTROPHILS # (AUTO) 10.1 K/uL (1.8-8.9); NEUTROPHILS % (AUTO) 85.7 % (43.0-81.0); PLATELET COUNT (AUTO) 180 K/uL (150-450); RED BLOOD CELL COUNT(AUTO) 2.56 MIL/uL (4.0-5.2); WHITE BLOOD COUNT (AUTO) 11.8 K/uL (4.3-11.0)
[2021-04-09 04:45] LABS: CALCIUM, SERUM 7.5 mg/dL (8.5-10.1); CREATININE 0.2 mg/dL (0.6-1.3); MAGNESIUM 1.6 mg/dL (1.8-2.4); PHOSPHORUS 2.8 mg/dL (2.5-4.9); POTASSIUM 3.1 mmol/L (3.5-5.1)
[2021-04-09 05:45] LABS: BAND % (MANUAL) 16 % (0.0-5.0); BASOPHILS % (MANUAL) 0 % (0.0-2.0); EOSINOPHILS % (MANUAL) 0 % (0-4); LYMPHOCYTES % (MANUAL) 5 % (16-48); METAMYELOCYTES % 1 % (0-0); MONOCYTES % (MANUAL) 2 % (0-11.0); NEUTROPHILS % (MANUAL) 76 (42-76)
[2021-04-09] MEDS: ASCORBIC ACID 500 MG TABLET GT SCH (08:05)
[2021-04-09] MEDS: ENOXAPARIN SODIUM 40 MG/0.4 ML DISP.SYRIN SQ SCH (08:08)
[2021-04-09] MEDS: Magnesium 1GM/D5W 100ML PREMIX 100 ML IV SCH ×2 (08:50→09:11)
[2021-04-09] MEDS: POTASSIUM CL. PREMIX PERIPHER. 50 ML IV SCH ×4 (08:51→11:23)
[2021-04-09] MEDS: PANTOPRAZOLE 40 MG/PACK PACK NG SCH (09:00)
--- NOTE | 2021-04-09 10:47 | NUR ---
RN notes Alert in bed, non verbal. Able to nod or shake head when asked with a yes or no answer. Eye tracking noted. No physical manifestation of pain or discomfort. Vital signs wnl. On levo at 0.02 tolerating well, no side effects noted. Kept clean and dry. Will endorse to next shift for continuity of care.
--- NOTE | 2021-04-09 11:00 | NUR ---
RN NOTES Received report for the patient at apprx 11 am from nurse. Patient is On levo at 0.02 tolerating well, no side effects noted. Dominguez cath intact and hanging to gravity with clear yellow urine. Patient's hob kept elevated. Kept clean and dry.Call light with in reach.
[2021-04-09] MEDS: CEFEPIME 2 GM in IV D5W 100 ML IV SCH ×2 (11:23→18:54)
[2021-04-09] MEDS: VANCOMYCIN 1 GM in IV D5W 250 ML IV SCH ×2 (12:09→20:25)
--- NOTE | 2021-04-09 18:51 | NUR ---
RN CLOSING NOTES Patient is alert and responsive to verbal and physical stimuli. Patient is on mechanical vent settings, sohail well. On ortega cath with clear yellow urine with output of 1150 cc during shift. Noted with right side drainage tube with output of 150 cc during shift. HOB kept elevated. Glucerna running via g tube at 55 cc/hour. D5/NS running at 80 ml/hour to left upper arm midline. Patient provided wound care and turned and repositioned q2h and prn. Levophed drip turned off at 1545 pm and BP monitored closely. Will endorse to next shift for cat. Call light with in reach. Bed is in lowest and locked position.
--- NOTE | 2021-04-09 19:10 | NUR ---
ICU/PRIVACY ATTORNEY RECIEVED REPORT FROM DAY SHIFT NURSE. SEE FLOWSHEET FOR ASSESSMENT, ALONG WITH SKIN ISSUES THAT ARE ADDRESSED ON THE FLOWSHEET ALONG WITH INTERVENTIONS. THERE ARE NO IV DRIPS WHICH NEED TO BE ADDRESSED ON IV SPREAD SHEET. PT WAS TURNED AND REPOSITIONED FOR COMFORT AND CARE. WILL CONTINUE TO MONITOR THIS PT
[2021-04-09] MEDS: MORPHINE SULFATE INJ 2 MG/ML DISP.SYRIN IV PRN (21:20)
--- NOTE | 2021-04-09 21:30 | NUR ---
ICU/BIOMEDICAL TECHNICIAN PT COMPLAINED ABOUT PAIN WHICH APPEARS TO BE 10/10 USING THE FLACC SCALE AND ADULT PAIN SCALE. NOTIFED CHARGE NURSE WHO THEN GAVE MORPHINE IVP PRN. WILL CONTINUE TO MONITOR THIS PT.
--- NOTE | 2021-04-09 21:45 | NUR ---
ICU/BANANA LOADER PT WAS BUCKING THE VENT AND OVER BREATHING THE VENT, SATURATION DROPPED, RT THEN INCREASED THE FIO2 TO 60% FROM 30%. WILL CONTINUE TO MONITOR THIS PT.
--- NOTE | 2021-04-09 23:15 | NUR ---
ICU/FIELD STAFF MANAGER PT WAS GIVEN ORAL CARE AT THIS TIME ALONG WITH PM CARE. PT TOLERATED THIS WELL, PT REMAINS ON CURRENT VENT SETTINGS WITH SATURATION AT 98-100%. PT WAS TURNED AND REPOSITIONED FOR COMFORT AND CARE. NO ACUTE DISTRESS SEEN AT THIS TIME. WILL CONTINUE TO MONITOR THIS PT.
[2021-04-10] VITALS (28 sets, daily range): BP systolic 85–151; BP diastolic 43–87
[2021-04-10] MEDS: IPRATROPIUM NEB FS 0.5 MG/2.5 ML AMPUL.NEB NEB SCH ×4 (01:49→20:11)
[2021-04-10] MEDS: ALBUTEROL FS 2.5 MG/3 ML VIAL.NEB NEB SCH ×4 (01:49→20:11)
--- NOTE | 2021-04-10 02:00 | NUR ---
ICU/UTILITY PORTER PT WAS TURNED AND REPOSITIONED FOR COMFORT AND CARE. NO ACUTE DISTRESS SEEN AT THIS TIME. WILL CONTINUE TO MONITOR THIS PT.
[2021-04-10] MEDS: CEFEPIME 2 GM in IV D5W 100 ML IV SCH ×3 (02:50→19:50)
[2021-04-10] MEDS: IV NS 0.9% 250 ML IV PRN (03:12)
[2021-04-10] MEDS: GLUCERNA 1.2 1,000 ML BOTTLE PEG SCH (03:12)
[2021-04-10] MEDS: VANCOMYCIN 1 GM in IV D5W 250 ML IV SCH ×2 (03:35→12:00)
--- NOTE | 2021-04-10 04:30 | NUR ---
ICU/SMELTING ENGINEER RT TRIED TO LOWERED DOWN THE FIO2 TO 30 FROM 50, HOWEVER PT WOULD DESAT TO LOW 90'S HIGH 80'S. PT IS CURRENTLY REMAINS ON 50% FIO2. WILL CONTINUE TO MONITOR THIS PT AND HER SATURATION.
[2021-04-10 05:14] LABS: BASOPHILS # (AUTO) 0.1 K/uL (0.0-0.2); BASOPHILS % (AUTO) 0.3 % (0.0-2.0); EOSINOPHILS % (AUTO) 0.3 % (0.0-6.0); HEMATOCRIT 22 % (33-45); HEMOGLOBIN 7.1 g/dL (11.5-14.8); LYMPHOCYTES # (AUTO) 3.7 K/uL (0.8-4.8); LYMPHOCYTES % (AUTO) 19.4 % (20.0-44.0); MEAN CORPUSCULAR HGB CONC 32 g/dl (31.0-36.0); MEAN CORPUSCULAR VOLUME 88 fL (82-100); MONOCYTES # (AUTO) 0.7 K/uL (0.1-1.30); MONOCYTES % (AUTO) 3.5 % (2.0-12.0); NEUTROPHILS # (AUTO) 14.6 K/uL (1.8-8.9); NEUTROPHILS % (AUTO) 76.5 % (43.0-81.0); PLATELET COUNT (AUTO) 209 K/uL (150-450); RED BLOOD CELL COUNT(AUTO) 2.52 MIL/uL (4.0-5.2); WHITE BLOOD COUNT (AUTO) 19.1 K/uL (4.3-11.0)
[2021-04-10 05:43] LABS: CALCIUM, SERUM 8.2 mg/dL (8.5-10.1); CREATININE 0.4 mg/dL (0.6-1.3); MAGNESIUM 1.8 mg/dL (1.8-2.4); PHOSPHORUS 3.3 mg/dL (2.5-4.9); POTASSIUM 4.5 mmol/L (3.5-5.1)
--- NOTE | 2021-04-10 07:05 | NUR ---
ICU/BLOCK MAKING MACHINE OPERATOR REPORT GIVEN TO DAY SHIFT NURSE.
--- NOTE | 2021-04-10 07:15 | NUR ---
RN OPENING NOTE Received patient asleep in bed appears calm and relaxed. On vent Shiley 8. AC 18, TV 500 Fio2 50%, PEEP 0. Patient able to give eye contact. non verbal but moves hands. Tele monitor reading SR with Pvcs 90s. Dominguez catheter draining clear yellow urine. Patient unable to move or reposition self. On GTF Glucerna @55ml/hr tolerating well with orders to flush with H20 q4h. BRADY Midline on TKO 10ml/hr. Has right lower lateral chest drain pigtail from thoracentesis draining cloudy yellow serous fluids. Safety measures maintained. Will continue to monitor.
--- NOTE | 2021-04-10 08:30 | NUR ---
FIO2 switched to 40%. O2 saturation 95%. Will cont to monitor.
[2021-04-10] MEDS: ASCORBIC ACID 500 MG TABLET GT SCH (08:49)
[2021-04-10] MEDS: PANTOPRAZOLE 40 MG/PACK PACK NG SCH (08:51)
[2021-04-10] MEDS: ENOXAPARIN SODIUM 40 MG/0.4 ML DISP.SYRIN SQ SCH (08:52)
--- NOTE | 2021-04-10 12:33 | NUR ---
Vanco trough 31 per pharmacy hold vanco dose for 12nn.
--- NOTE | 2021-04-10 12:45 | NUR ---
Patient was desatting at 87%. Suction as ordered. Repositioned patient. Informed RT and they put her back on Fio2 50%. O2 sat now 95%
--- NOTE | 2021-04-10 19:30 | NUR ---
report given to functional support analyst nurse for cat
--- NOTE | 2021-04-10 19:45 | NUR ---
RN OPENING NOTE Received patient in bed, awake and non non-verbal. On vent Shiley 8. AC 18, TV 500 Fio2 50%, PEEP 0. Patient reactive to verbal stimuli and touch, non verbal but able to nod and move hands to questions or needs. On bedside monitor reading SR 90's. Dominguez catheter free of kinks, draining clear yellow urine. Patient is bedbound and repositioning completed. On GTF Glucerna 1.2 @55ml/hr tolerating well with orders to flush with H20 q4h. G-tube flushed and patent and verified placement with aucultation. (L)UA Midline on TKO 10ml/hr. Pt. has right lower lateral chest drain pigtail from thoracentesis draining cloudy yellow serous fluids. Safety measures maintained: Bed locked in lowest position, side rails up x2, bed alarm on, call light within reach. No acute distress noted at this time
[2021-04-10] MEDS: MORPHINE SULFATE INJ 2 MG/ML DISP.SYRIN IV PRN (22:37)
[2021-04-11] VITALS (74 sets, daily range): BP systolic 79–144; BP diastolic 41–107
[2021-04-11] MEDS: IPRATROPIUM NEB FS 0.5 MG/2.5 ML AMPUL.NEB NEB SCH ×4 (01:32→19:57)
[2021-04-11] MEDS: ALBUTEROL FS 2.5 MG/3 ML VIAL.NEB NEB SCH ×4 (01:32→19:57)
--- NOTE | 2021-04-11 03:00 | NUR ---
RN NOTE SPOKE WITH [facility], STATED IT WAS OKAY TO GIVEN VANCOMYCIN DUE AT 0300 DESPITE TROUGH LEVEL OF 31 ON 04/10/21 1137. STATES THIS DOSAGE AND FREQUENCY HAVE BEEN ADJUSTED ACCORDING TO TROUGH LEVEL.
[2021-04-11] MEDS: VANCOMYCIN 1.25 GM in IV D5W 250 ML IV SCH ×2 (03:25→21:00)
[2021-04-11] MEDS: CEFEPIME 2 GM in IV D5W 100 ML IV SCH ×3 (03:25→18:30)
[2021-04-11] MEDS: GLUCERNA 1.2 1,000 ML BOTTLE PEG SCH (03:36)
[2021-04-11 05:41] LABS: BASOPHILS % (AUTO) 0.3 % (0.0-2.0); EOSINOPHILS % (AUTO) 0.2 % (0.0-6.0); LYMPHOCYTES # (AUTO) 0.7 K/uL (0.8-4.8); LYMPHOCYTES % (AUTO) 5.2 % (20.0-44.0); MEAN CORPUSCULAR HGB CONC 32 g/dl (31.0-36.0); MEAN CORPUSCULAR VOLUME 87 fL (82-100); MONOCYTES # (AUTO) 0.4 K/uL (0.1-1.30); MONOCYTES % (AUTO) 3.2 % (2.0-12.0); NEUTROPHILS % (AUTO) 91.1 % (43.0-81.0); PLATELET COUNT (AUTO) 167 K/uL (150-450); RED BLOOD CELL COUNT(AUTO) 2.01 MIL/uL (4.0-5.2); WHITE BLOOD COUNT (AUTO) 13.2 K/uL (4.3-11.0)
[2021-04-11 05:51] LABS: CALCIUM, SERUM 8.3 mg/dL (8.5-10.1); CREATININE 0.8 mg/dL (0.6-1.3); MAGNESIUM 1.8 mg/dL (1.8-2.4); PHOSPHORUS 4.1 mg/dL (2.5-4.9); POTASSIUM 4.2 mmol/L (3.5-5.1)
[2021-04-11 06:05] LABS: HEMATOCRIT 17 % (33-45); HEMOGLOBIN 5.6 g/dL (11.5-14.8)
--- NOTE | 2021-04-11 06:10 | NUR ---
RN NOTE CRITICAL LAB VALUE OF HGB 5.6 READ BACK BY untapt. DR RICH AWARE, TWO UNITS OF PRBC'S ORDERED ALONG WITH TYPE AND SCREEN
--- NOTE | 2021-04-11 06:47 | NUR ---
NUCLEAR UNIT OPERATOR CLOSING NOTE Patient in bed, awake and non non-verbal. On vent Shiley 8. AC 18, TV 500 Fio2 60%, PEEP 0. Patient reactive to verbal stimuli and touch, non verbal but able to nod and move hands to questions or needs. On bedside monitor reading SR 90's. Dominguez catheter free of kinks, draining clear yellow urine. Patient is bedbound and repositioning completed. On GTF Glucerna 1.2 @55ml/hr tolerating well with orders to flush with H20 q4h. G-tube flushed and patent and verified placement with auscultation. (L )UA Midline on TKO 10ml/hr. Pt. has right lower lateral chest drain pigtail from thoracentesis draining cloudy yellow serous fluids. Critical lab value of hgb 5.6 received by [place], 2 PRBC's to be infused and orders inputted, along with type and screen... blood transfusion consent in pt's chart. Pt kept clean and dry. All needs and orders met throughout shift. Safety measures maintained: Bed locked in lowest position, side rails up x2, bed alarm on, call light within reach. No acute distress noted at this time. Endorsed to morning shift RN.
--- NOTE | 2021-04-11 07:00 | NUR ---
RN NOTES RECEIVED PT ON BED, VENT/ TRACH DEPENDENT, TRACH CARE DONE, TOLERATING VENT SETTING WELL, O2 SAT WNL, NON VERBAL, PT ABLE TO NOD TO YES AND NO QUESTION , ON TELE ST HR IN 100'S, SOMMER DRAINING TO GRAVITY, TF AT 55CC/HR RUNNING , RIGHT LOWER LATERAL CHEST DRAIN PIGTAIL DRAINING CLOUDY YELLOW SEROUS FLUIDS , SR UP x3, CALL LIGHT WITHIN EASY REACH, BED LOCKED AND IN LOWEST POSITION, CONTINUE TO MONITOR .
[2021-04-11 07:11] LABS: EOSINOPHILS % (MANUAL) 2 % (0-4); LYMPHOCYTES % (MANUAL) 6 % (16-48); MONOCYTES % (MANUAL) 1 % (0-11.0); NEUTROPHILS % (MANUAL) 91 (42-76)
--- NOTE | 2021-04-11 07:55 | NUR ---
RT PATIENT REC'D TRACHED ON [facility] VENT WITH ORDERED SETTINGS. PATIENT HAS A SHILEY XLT DISTAL TRACH WITH NOTED PROTRUSION FROM [place] [facility]. PATIENT IS STILL RECEIVING FULL TIDAL VOLUME AND VITALS REMAIN STABLE. PEAK PRESSURES NOTED TO FLUCTUATE BETWEEN 35-50. DR VENEGAS NOTIFIED. AMBU BAG AND SAFETY MEASURES AT BEDSIDE. Addendum: 04/11/21 at 1347 by LASHAY SLATER RT Amended: Links added.
[2021-04-11] MEDS: NOREPINEPHRINE 8 MG in IV NS 0.9% 242 ML IV PRN ×2 (08:03→15:34)
[2021-04-11] MEDS: ASCORBIC ACID 500 MG TABLET GT SCH (08:12)
[2021-04-11] MEDS: ENOXAPARIN SODIUM 40 MG/0.4 ML DISP.SYRIN SQ SCH (08:12)
[2021-04-11] MEDS: PANTOPRAZOLE 40 MG/PACK PACK NG SCH (08:12)
--- NOTE | 2021-04-11 12:00 | NUR ---
RN NOTES PT NEED BLOOD TRANSFUSION AND PRESSORS, AND ABX, ORDER RECEIVED FOR SECOND MIDLINE PLACEMENT.
[2021-04-11] MEDS: MORPHINE SULFATE INJ 2 MG/ML DISP.SYRIN IV PRN (13:46)
--- NOTE | 2021-04-11 14:06 | NUR ---
RT PATIENT NOTED TO BE IN DISTRESS. FIO2 INCREASED TO 100% AIRWAY CHECKED AND PATENT. VOLUMES ARE BEING DELIVERED BY VENTILATOR. TRACH SECURE AND IN PROPER POSITION. RESPIRATORY CHECKS MADE AND RESPIRATORY MODALITIES ARE FUNCTIONING PROPERLY. Addendum: 04/11/21 at 1409 by LASHAY LSATER RT Amended: Links added.
--- NOTE | 2021-04-11 14:30 | NUR ---
RN NOTES UNABLE TO GET ACCURATE BP, ME HR IN 130'S , PT IS ALERT , JR TOOL ANALYST AND DR RUBI COLVIN, ORDER RECEIVED FOR A- LINE PLACEMENT .
--- NOTE | 2021-04-11 15:00 | NUR ---
RN NOTES R WRIST A- LINE PLACED BY DR DEVLIN AT THE BEDSIDE.
[2021-04-11 15:01] LABS: BILIRUBIN,URINE NEGATIVE (NEGATIVE); COLOR,URINE YELLOW (YELLOW); LEUKOCYTE ESTERASE ,URINE NEGATIVE (NEGATIVE); NITRITE, URINE NEGATIVE (NEGATIVE); PROTEIN,URINE NEGATIVE (NEGATIVE); UGLUCOSE NEGATIVE (NEGATIVE); UROBILINOGEN,URINE 0.2 EU/dL (0.2)
[2021-04-11 15:15] LABS: BACTERIA,URINE RARE /HPF (None Seen)
[2021-04-11 15:16] LABS: YEAST,URINE Many /HPF (None Seen)
[2021-04-11 15:39] LABS: ABG BASE EXCESS -1.5 mmol/L; ABG PCO2 45.8 mmHg (35.0-45.0); ABG PH 7.342 (7.350-7.450); ABG PO2 157.8 mmHg (75.0-100.0); AaDO2 509.4 mmHg; COHb 0.9 % (0.5-1.5); MetHb 0.2 % (0.0-1.5); O2Hb 97.9 % (94.0-97.0); SITE, ABG A-Line
--- NOTE | 2021-04-11 16:00 | NUR ---
RN NOTES DR VENEGAS NOTIFIED REGARDING ABG AND CHEST X RAY RESULTS . PT ON LEVO DRIP , CONTINUE TO MONITOR BP .
--- NOTE | 2021-04-11 18:47 | NUR ---
RN NOTES TRACH CARE DONE NEEDED, PT ON LEVO AND .2 MCG/KG/MIN FOR BP SUPPORT , RECEIVED TWO UNITS OF PRBC'S ON THIS SHIFT , TOLERATED WELL. RIGHT UPPER CHEST DRAINAGE SITE CLEAN , DRY AND INTACT, SR UP x3, CALL LIGHT WITHIN EASY REACH, BED LOCKED AND IN LOWEST POSITION, WILL ENDORSE TO STEM SHAPER NURSE FOR CONTINUITY OF CARE.
--- NOTE | 2021-04-11 21:09 | NUR ---
Favioo scheduled at 2100 is held due to Trough level at 35.
[2021-04-12] VITALS (91 sets, daily range): BP systolic 70–171; BP diastolic 40–128
[2021-04-12] MEDS ORDERED: NOREPINEPHRINE 4 MG/4 ML AMPUL IV ONE (00:48)
[2021-04-12] MEDS: NOREPINEPHRINE 8 MG in IV NS 0.9% 242 ML IV PRN ×2 (00:55→08:39)
[2021-04-12] MEDS: IPRATROPIUM NEB FS 0.5 MG/2.5 ML AMPUL.NEB NEB SCH ×4 (01:34→20:00)
[2021-04-12] MEDS: ALBUTEROL FS 2.5 MG/3 ML VIAL.NEB NEB SCH ×4 (01:34→20:00)
[2021-04-12] MEDS: CEFEPIME 2 GM in IV D5W 100 ML IV SCH ×3 (03:58→18:31)
[2021-04-12 04:25] LABS: BASOPHILS # (AUTO) 0.1 K/uL (0.0-0.2); BASOPHILS % (AUTO) 0.5 % (0.0-2.0); EOSINOPHILS % (AUTO) 0.3 % (0.0-6.0); HEMATOCRIT 25 % (33-45); LYMPHOCYTES # (AUTO) 1.3 K/uL (0.8-4.8); LYMPHOCYTES % (AUTO) 9.4 % (20.0-44.0); MEAN CORPUSCULAR HGB CONC 32 g/dl (31.0-36.0); MEAN CORPUSCULAR VOLUME 87 fL (82-100); MONOCYTES # (AUTO) 0.4 K/uL (0.1-1.30); MONOCYTES % (AUTO) 2.6 % (2.0-12.0); NEUTROPHILS # (AUTO) 12.2 K/uL (1.8-8.9); NEUTROPHILS % (AUTO) 87.2 % (43.0-81.0); PLATELET COUNT (AUTO) 179 K/uL (150-450); RED BLOOD CELL COUNT(AUTO) 2.85 MIL/uL (4.0-5.2); WHITE BLOOD COUNT (AUTO) 13.9 K/uL (4.3-11.0)
[2021-04-12 04:33] LABS: CALCIUM, SERUM 8.2 mg/dL (8.5-10.1); CREATININE 1.2 mg/dL (0.6-1.3); MAGNESIUM 1.9 mg/dL (1.8-2.4); PHOSPHORUS 4.5 mg/dL (2.5-4.9); POTASSIUM 4.8 mmol/L (3.5-5.1)
[2021-04-12] MEDS: MORPHINE SULFATE INJ 2 MG/ML DISP.SYRIN IV PRN ×2 (05:52→11:27)
--- NOTE | 2021-04-12 07:00 | NUR ---
RN NOTES RECEIVED PT ON BED, VENT/ TRACH DEPENDENT, TRACH CARE DONE, TOLERATING VENT SETTING WELL, O2 SAT WNL, NON VERBAL, ON TELE ST HR IN 100'S, OSMMER DRAINING TO GRAVITY, TF AT 55CC/HR RUNNING , LEVO AT .2 MCG/KG/MIN RUNNING FOR BP SUPPORT, RIGHT AND LEFT MIDLINE SITE CLEAN, DRY AND INTACT, RIGHT LOWER LATERAL CHEST DRAIN PIGTAIL DRAINING CLOUDY YELLOW SEROUS FLUIDS , SR UP x3, CALL LIGHT WITHIN EASY REACH, BED LOCKED AND IN LOWEST POSITION, CONTINUE TO MONITOR .
--- NOTE | 2021-04-12 08:00 | NUR ---
RN NOTES RIGHT PIGTAIL PLURAL CATHETER DRAINAGE BAG FILLING UP WITH AIR CONTINUOUSLY , DR VENEGAS AT THE BEDSIDE NOTIFIED, CONTINUE TO MONITOR.
[2021-04-12 08:09] LABS: ABG BASE EXCESS -0.4 mmol/L; ABG OXYGEN SATURATION 97.9 % (92.0-98.5); ABG PCO2 41.5 mmHg (35.0-45.0); ABG PO2 103.7 mmHg (75.0-100.0); AaDO2 278.5 mmHg; MetHb 0.2 % (0.0-1.5); O2Hb 96.7 % (94.0-97.0); SITE, ABG A-Line
[2021-04-12] MEDS: PANTOPRAZOLE 40 MG/PACK PACK NG SCH (08:39)
[2021-04-12] MEDS: ASCORBIC ACID 500 MG TABLET GT SCH (08:39)
--- NOTE | 2021-04-12 12:00 | NUR ---
RN NOTES TRACH SUCTIONING DONE NEEDED, CONTINUE TO MONITOR
[2021-04-12] MEDS: GLUCERNA 1.2 1,000 ML BOTTLE PEG SCH (15:00)
--- NOTE | 2021-04-12 18:00 | NUR ---
RN NOTES RIGHT PIGTAIL PLEURAL DRAINAGE BAG FILLING UP WITH AIR , DR VENEGAS AWARE . PT OFF LEVO DRIP AT THIS TIME, BP STABLE, WILL ENDORSE TO PEDIATRIC SPEECH THERAPIST NURSE FOR CONTINUITY OF CARE .
--- NOTE | 2021-04-12 19:30 | NUR ---
RN NOTE PATIENT IN BED, EYES OPEN. NONVERBAL. TRACH/VENT DEPENDENT, TOLERATING SETTINGS WELL. O2 SAT 95%. SOMMER CATH DRAINING YELLOW URINE VIA GRAVITY. G-TUBE NOTED WITH GLUCERNA 1.2 @ 55ML/HR RUNNING, NO RESIDUAL NOTED. RIGHT LOWER LATERAL CHEST PIGTAIL NOTED, DRAINING CLOUDY YELLOW SEROUS FLUID. BED LOCKED AND IN LOWEST POSITION. CALL LIGHT WITHIN REACH.
[2021-04-13] VITALS (28 sets, daily range): BP systolic 84–138; BP diastolic 36–65
[2021-04-13] MEDS: IPRATROPIUM NEB FS 0.5 MG/2.5 ML AMPUL.NEB NEB SCH ×4 (02:09→19:50)
[2021-04-13] MEDS: ALBUTEROL FS 2.5 MG/3 ML VIAL.NEB NEB SCH ×4 (02:09→19:50)
[2021-04-13] MEDS: CEFEPIME 2 GM in IV D5W 100 ML IV SCH ×2 (02:26→15:12)
[2021-04-13] MEDS: GLUCERNA 1.2 1,000 ML BOTTLE PEG SCH (03:58)
--- NOTE | 2021-04-13 04:04 | NUR ---
RT NOTE Pt rec'd trached on [facility] vent on AC mode settings as charted. Pt shows no signs of resp distress or sob. Trach is patent and secured. Pt sx'd for thick mod amt of yellow secretions. Vent plugged into red outlet. Ambu bag and emergency spare trach bedside. Will continue to monitor closely. Addendum: 04/13/21 at 0405 by JASMIN LIMA RT Amended: Links added.
[2021-04-13 04:26] LABS: BASOPHILS % (AUTO) 0.3 % (0.0-2.0); EOSINOPHILS % (AUTO) 0.7 % (0.0-6.0); HEMATOCRIT 22 % (33-45); HEMOGLOBIN 7.1 g/dL (11.5-14.8); LYMPHOCYTES # (AUTO) 0.9 K/uL (0.8-4.8); LYMPHOCYTES % (AUTO) 7.6 % (20.0-44.0); MEAN CORPUSCULAR HGB CONC 32 g/dl (31.0-36.0); MEAN CORPUSCULAR VOLUME 87 fL (82-100); MONOCYTES # (AUTO) 0.3 K/uL (0.1-1.30); MONOCYTES % (AUTO) 2.5 % (2.0-12.0); NEUTROPHILS # (AUTO) 10.3 K/uL (1.8-8.9); NEUTROPHILS % (AUTO) 88.9 % (43.0-81.0); PLATELET COUNT (AUTO) 151 K/uL (150-450); RED BLOOD CELL COUNT(AUTO) 2.54 MIL/uL (4.0-5.2); WHITE BLOOD COUNT (AUTO) 11.6 K/uL (4.3-11.0)
[2021-04-13 04:43] LABS: CALCIUM, SERUM 8.3 mg/dL (8.5-10.1); CREATININE 1.4 mg/dL (0.6-1.3); PHOSPHORUS 3.7 mg/dL (2.5-4.9); POTASSIUM 4.8 mmol/L (3.5-5.1)
--- NOTE | 2021-04-13 06:50 | NUR ---
RN NOTE PATIENT IN BED, OPENS EYES TO TACTILE AND VERBAL STIMULI. TOLERATING VENT SETTINGS WELL. SOMMER CATH DRAINED 555CC YELLOW URINE. RIGHT PIGTAIL OUTPUT OF 80CC. G-TUBE RUNNING GLUCERNA 1.2 @ 55ML/HR, NO RESIDUAL NOTED. G-TUBE FLUSHED WITH H2O 250CC Q4H ORDERED. TURNED AND REPOSITIONED. TOLERATED BED BATH AND ORAL CARE DONE. BED LOCKED AND IN LOWEST POSITION. CALL LIGHT WITHIN. WILL ENDORSE TO AM SHIFT.
--- NOTE | 2021-04-13 08:00 | NUR ---
CREATIVE SERVICES DESIGNER RECEIVED PT OPENING EYES, DOES NOT TRACK, DOES NOT FOLLOW COMMANDS. TRACH INTACT CONNECTED TO VENT. SPO2 CONSISTENTLY HIGH 90'S ON CURRENT VENT SETTINGS. SUCTIONED COPIOUS THICK GOODRICH SECRETIONS FROM ETT. DANA IN RIGHT RADIAL ARTERY INTACT, CALIBRATED AND FLUSHED. CORRELATES WITH CUFF PRESSURE. GT INTACT WITH CONITNUOUS TUBE FEEDING. RESIDUALS AROUND 10 ML. FLUSHED WITH WATER FOR PATENCY. THORACIC PIGTAIL TUBE CONNECTED TO ACCORDION DRAIN WITH SMALL AMT GOODRICH DRAINAGE AND BAG INFLATED WITH AIR. BAG EMPTIED OF AIR AND ACCORDION PUSHED IN. WILL MONITOR. F/C INTACT.
[2021-04-13] MEDS: ASCORBIC ACID 500 MG TABLET GT SCH (08:51)
[2021-04-13] MEDS: PANTOPRAZOLE 40 MG/PACK PACK NG SCH (08:51)
[2021-04-13] MEDS ORDERED: VANCOMYCIN 1 GM in IV D5W 250 ML IV SCH (09:00)
--- NOTE | 2021-04-13 10:00 | NUR ---
RN I CU GT WATER FLUSHES TO START. SUCTIONED.
--- NOTE | 2021-04-13 12:00 | NUR ---
SHANK SCOURER THORACIC PIGTAIL TUBE CLAMPED ORDERED BY DR VENEGAS. PT BECAME TACHYPNEIC, TACHYCARDIC, AGITATED WITH DROP IN SPO2 AFTER [address] VENEGAS NOTIFIED. CLAMP REMOVED AND CXR ORDERED. REVIEWED RESULTS. WILL CONTINUE TO MONITOR FOR POSSIBLE PNEUMOTHORAX.
--- NOTE | 2021-04-13 14:00 | NUR ---
FAMILY LAW ATTORNEY THORACIC PIGTAIL CONNECTED TO PLEUREVAC AND CONNECTED TO SUCTION PER DR DEVLIN'S DIRECTION. AIR LEAK NOTED WITH SMALL DRAINAGE SEEN. WILL CONTINUE TO MONITOR SPO2 STABLE WITH NO RESP DISTRESS SEEN.
--- NOTE | 2021-04-13 16:00 | NUR ---
SHAPER HAND DR VENEGAS CAME TO RE-EVALUATE PT. AGREED WITH USE OF PLEUREVAC. WILL CHECK CXR IN AM. NO RESP DISTRESS SEEN.
[2021-04-13] MEDS: IV NS 0.9% 250 ML IV PRN (17:43)
--- NOTE | 2021-04-13 18:00 | NUR ---
SENIOR ACTUARIAL ANALYST SUCTIONED SMALL AMT THICK GOODRICH SECRETIONS FROM TRACH. AIR LEAK STILL SEEN IN PLEUREVAC. SPO2 STILL AT HIGH 90'S NO RESP DISTRESS SEEN. BP STABLE, NOT REQUIRING PRESSORS.
--- NOTE | 2021-04-13 19:05 | NUR ---
RECEIVED PT ON BED, VENT/ TRACH DEPENDENT, VENT SETTING ORDER FIO2 40% SPO2 98% NON VERBAL, ON TELE SINUS RHYTHM 80'S SOMMER DRAINING TO GRAVITY, TF AT 55CC/HR RUNNING , RIGHT AND LEFT MIDLINE SITE CLEAN, DRY AND INTACT,HAVE A LINE ON RIGHT RADIAL ARTERY, RIGHT LOWER LATERAL CHEST DRAIN PIGTAIL CONNECTED TO CHEST TUBE ON SUCTION DRAINING CLOUDY YELLOW SEROUS FLUIDS , SR UP x3, CALL LIGHT WITHIN EASY REACH, BED LOCKED AND IN LOWEST POSITION, CONTINUE TO MONITOR .
--- NOTE | 2021-04-13 20:34 | NUR ---
RT NOTE Pt rec'd trached on [facility] vent on AC mode settings as charted. Pt shows no signs of resp distress or sob at this time. Trach is patent and secured. Pt sx'd for thick small amt of yellow secretions. Vent plugged into red outlet. Ambu bag and emergency spare trach bedside. Will continue to monitor closely throughout shift. Addendum: 04/13/21 at 2035 by JESICA NASCIMENTO RT Amended: Links added.
[2021-04-13] MEDS ORDERED: NOREPINEPHRINE 8MG/250ML RTU 250 ML IV ONE (23:03)
[2021-04-13] MEDS: NOREPINEPHRINE 8 MG in IV NS 0.9% 242 ML IV PRN (23:04)
[2021-04-14] VITALS (93 sets, daily range): BP systolic 57–153; BP diastolic 24–101
[2021-04-14] MEDS: ALBUTEROL FS 2.5 MG/3 ML VIAL.NEB NEB SCH ×4 (01:36→19:29)
[2021-04-14] MEDS: IPRATROPIUM NEB FS 0.5 MG/2.5 ML AMPUL.NEB NEB SCH ×4 (01:36→19:29)
[2021-04-14] MEDS: CEFEPIME 2 GM in IV D5W 100 ML IV SCH ×2 (03:12→15:23)
[2021-04-14 04:39] LABS: BASOPHILS # (AUTO) 0.1 K/uL (0.0-0.2); BASOPHILS % (AUTO) 0.6 % (0.0-2.0); EOSINOPHILS % (AUTO) 1.1 % (0.0-6.0); HEMATOCRIT 22 % (33-45); HEMOGLOBIN 7.3 g/dL (11.5-14.8); LYMPHOCYTES % (AUTO) 9.4 % (20.0-44.0); MEAN CORPUSCULAR HGB CONC 33 g/dl (31.0-36.0); MEAN CORPUSCULAR VOLUME 87 fL (82-100); MONOCYTES # (AUTO) 0.3 K/uL (0.1-1.30); MONOCYTES % (AUTO) 2.7 % (2.0-12.0); NEUTROPHILS # (AUTO) 9.1 K/uL (1.8-8.9); NEUTROPHILS % (AUTO) 86.2 % (43.0-81.0); PLATELET COUNT (AUTO) 141 K/uL (150-450); RED BLOOD CELL COUNT(AUTO) 2.53 MIL/uL (4.0-5.2); WHITE BLOOD COUNT (AUTO) 10.5 K/uL (4.3-11.0)
[2021-04-14 04:45] LABS: CALCIUM, SERUM 8.4 mg/dL (8.5-10.1); CREATININE 1.5 mg/dL (0.6-1.3); PHOSPHORUS 3.4 mg/dL (2.5-4.9); POTASSIUM 4.9 mmol/L (3.5-5.1)
--- NOTE | 2021-04-14 07:00 | NUR ---
RN NOTES RECEIVED PT ON BED, VENT/ TRACH DEPENDENT, TRACH CARE DONE, TOLERATING VENT SETTING WELL, O2 SAT WNL, NON VERBAL, ON TELE SR HR IN 80'S, SOMMER DRAINING TO GRAVITY, TF AT 55CC/HR RUNNING , LEVO AT .04 MCG/KG/MIN RUNNING FOR BP SUPPORT, RIGHT UPPER ARM MIDLINE OCCLUDED , UNABLE TO FLUSH , D/GAGE . RIGHT LOWER LATERAL CHEST CATHETER ATTACHED TO PLURAL VAC WITH SMALL AMOUNT OF SEROSANGUINEOUS DRAINING SR UP x3, CALL LIGHT WITHIN EASY REACH, BED LOCKED AND IN LOWEST POSITION, CONTINUE TO MONITOR .
[2021-04-14] MEDS ORDERED: VANCOMYCIN 0.75 GM in IV D5W 250 ML IV SCH (08:00)
[2021-04-14] MEDS: PANTOPRAZOLE 40 MG/PACK PACK NG SCH (08:03)
[2021-04-14] MEDS: ASCORBIC ACID 500 MG TABLET GT SCH (08:03)
[2021-04-14] MEDS: HYDROCORTISONE SOD SUCCINATE 100 MG/2 ML VIAL IV SCH ×3 (09:31→20:25)
[2021-04-14] MEDS: FLUDROCORTISONE 0.1 MG TABLET GT SCH ×3 (11:30→23:59)
--- NOTE | 2021-04-14 12:00 | NUR ---
RN NOTES PT ON LEVO AT .02 MCG/KG.MIN RUNNING FOR BP SUPPORT, TRACH SUCTIONING DONE, CONTINUE TO MONITOR.
--- NOTE | 2021-04-14 15:30 | NUR ---
RECEIVED PT ON BED, VENT/ TRACH DEPENDENT, VENT SETTING ORDER FIO2 40% SPO2 98% NON VERBAL, ON TELE SINUS RHYTHM 80'S SOMMER DRAINING TO GRAVITY, TF AT 55CC/HR RUNNING , LEFT MIDLINE SITE CLEAN, DRY AND INTACT,WITH ONGOING LEVOPHED @0.02 MCG/KG/MIN HAVE A LINE ON RIGHT RADIAL ARTERY, RIGHT LOWER LATERAL CHEST DRAIN PIGTAIL CONNECTED TO CHEST TUBE ON SUCTION DRAINING CLOUDY YELLOW SEROUS FLUIDS , HAVE SOMMER CATHETER ON PLACE WITH YELLOW URINE DRAINING VIA GRAVITY SR UP x3, CALL LIGHT WITHIN EASY REACH, BED LOCKED AND IN LOWEST POSITION, CONTINUE TO MONITOR .
--- NOTE | 2021-04-14 15:36 | NUR ---
RN NOTES PT REMAINS IN LEVO AT .02 MCG/KG/ MIN ,NO SIGNIFICANT CHANGES NOTED ON THIS SHIFT, REPORT GIVEN TO STACIA RN FOR CONTINUITY OF CARE.
[2021-04-14] MEDS: IV NS 0.9% 250 ML IV PRN (19:30)
--- NOTE | 2021-04-14 20:22 | NUR ---
RECEIVED PT TRACHED SHLY 8XLT ON [facility] VENT. NO RESP DISTRESS NOTED. PT TOLERATING VENT SETTINGS. TRACH SECURED, CUFF CHECKED. SX'D SMALL AMT OF THICK WHITE SECRETIONS. VENT ALARMS SET AND AUDIBLE. CONTINUE TO MONITOR. Addendum: 04/14/21 at 2023 by CAROLINA ORTIZ RT Amended: Links added.
[2021-04-14] MEDS: GLUCERNA 1.2 1,000 ML BOTTLE PEG SCH (20:36)
[2021-04-15] VITALS (31 sets, daily range): BP systolic 89–123; BP diastolic 42–98
[2021-04-15] MEDS: ALBUTEROL FS 2.5 MG/3 ML VIAL.NEB NEB SCH ×3 (01:14→13:14)
[2021-04-15] MEDS: IPRATROPIUM NEB FS 0.5 MG/2.5 ML AMPUL.NEB NEB SCH ×3 (01:14→13:14)
[2021-04-15] MEDS: CEFEPIME 2 GM in IV D5W 100 ML IV SCH (02:59)
[2021-04-15] MEDS: FLUDROCORTISONE 0.1 MG TABLET GT SCH ×2 (05:02→12:03)
[2021-04-15] MEDS: HYDROCORTISONE SOD SUCCINATE 100 MG/2 ML VIAL IV SCH (05:02)
[2021-04-15 05:29] LABS: BASOPHILS % (AUTO) 0.2 % (0.0-2.0); HEMATOCRIT 25 % (33-45); LYMPHOCYTES # (AUTO) 0.8 K/uL (0.8-4.8); LYMPHOCYTES % (AUTO) 5.4 % (20.0-44.0); MEAN CORPUSCULAR HGB CONC 32 g/dl (31.0-36.0); MEAN CORPUSCULAR VOLUME 88 fL (82-100); MONOCYTES # (AUTO) 0.4 K/uL (0.1-1.30); MONOCYTES % (AUTO) 2.9 % (2.0-12.0); NEUTROPHILS # (AUTO) 13.3 K/uL (1.8-8.9); NEUTROPHILS % (AUTO) 91.5 % (43.0-81.0); PLATELET COUNT (AUTO) 162 K/uL (150-450); RED BLOOD CELL COUNT(AUTO) 2.81 MIL/uL (4.0-5.2); WHITE BLOOD COUNT (AUTO) 14.6 K/uL (4.3-11.0)
[2021-04-15 05:38] LABS: OCCULT BLOOD STOOL NEGATIVE (NEGATIVE)
[2021-04-15 06:11] LABS: CALCIUM, SERUM 8.3 mg/dL (8.5-10.1)
[2021-04-15 06:12] LABS: CREATININE 1.7 mg/dL (0.6-1.3); PHOSPHORUS 3.8 mg/dL (2.5-4.9)
--- NOTE | 2021-04-15 06:26 | NUR ---
PT ON BED AWAKE STILL ON TRACH/VENT SETTING PER MD FIO2 40% SPO2 97% NO SIGN OF RESPIRATORY DISTRESS, NO SIGNIFICANT CHANGES ON CONDITION NOTED, ALL NEEDS ATTENDED, TRACH CARE DONE, BEDSIDE MONITOR READS SINUS RHYTHM WITH BBB BED ON LOWEST POSITION AND LOCKED SIDE RAILS UP X2 WILL CONT TO MONITOR
--- NOTE | 2021-04-15 07:00 | NUR ---
RN NOTES RECEIVED PT ON BED, VENT/ TRACH DEPENDENT, TRACH CARE DONE, TOLERATING VENT SETTING WELL, O2 SAT WNL, NON VERBAL, ON TELE SR HR IN 70'S, SOMMER DRAINING TO GRAVITY, TF AT 55CC/HR RUNNING , RIGHT UPPER LATERAL CHEST CATHETER ATTACHED TO PLURAL VAC WITH MODERATE AMOUNT OF WHITISH DRAINAGE , DRANING SR UP x3, CALL LIGHT WITHIN EASY REACH, BED LOCKED AND IN LOWEST POSITION, CONTINUE TO MONITOR .
[2021-04-15] MEDS: PANTOPRAZOLE 40 MG/PACK PACK NG SCH (08:20)
[2021-04-15] MEDS: ASCORBIC ACID 500 MG TABLET GT SCH (08:20)
[2021-04-15] MEDS ORDERED: VANCOMYCIN 0.75 GM in IV D5W 250 ML IV SCH (09:00)
[2021-04-15] MEDS ORDERED: HYDROCORTISONE SOD SUCCINATE 100 MG/2 ML VIAL IV SCH (13:00)
--- NOTE | 2021-04-15 13:35 | NUR ---
RN NOTES PT HAS NO BLOOD PRESSURE AND PULSELESS, O2 SAT 20%, NO PALPABLE PULSES , CODE BLUE INITIATED . PLEASE SEE CODE BLUE SHEET .
[2021-04-15 13:37] LABS: CREATININE, URINE 16.3 MG/DL (30.0-125.0)
[2021-04-15 13:40] LABS: BILIRUBIN,URINE NEGATIVE (NEGATIVE); COLOR,URINE YELLOW (YELLOW); LEUKOCYTE ESTERASE ,URINE SMALL (NEGATIVE); NITRITE, URINE NEGATIVE (NEGATIVE); PROTEIN,URINE 30 mg/dl (NEGATIVE); UGLUCOSE NEGATIVE (NEGATIVE); UROBILINOGEN,URINE 0.2 EU/dL (0.2)
[2021-04-15 13:45] LABS: URINE SODIUM, RANDOM < 5 mmol/l (40-220)
--- NOTE | 2021-04-15 13:46 | NUR ---
RN NOTES PEA NOTED, NO BLOOD PRESSURE NO PULSES NOTED, , NO O2 SATURATION , SECOND CODE BLUE INITIATED, PLEASE SEE CODE BLUE SHEET .
--- NOTE | 2021-04-15 13:49 | NUR ---
RN NOTES PT PRONOUNCED AT 13:[address]VLIN . DR MCCALL PCP NOTIFED . PT HAS NO FAMILY .
[2021-04-15 13:53] LABS: BACTERIA,URINE Few /HPF (None Seen); SQUAMOUS EPITHELIAL CELL,UR Many /HPF (None Seen); YEAST,URINE Many /HPF (None Seen)
[2021-04-15 13:54] LABS: URINE AMORPHOUS URATE Many /HPF (None Seen)
--- NOTE | 2021-04-15 14:00 | NUR ---
RN NOTES CALL MADE TO PUBLIC GUARDIAN ( KRISTAL ) AT TO NOTIFY ,THAT PT IS . HIS MAIL BOX IS FULL AND NOT ENOUGH SPACE TO LEAVE A MASSAGE .
[2021-04-15] MEDS ORDERED: CALCIUM CHLORIDE 1,000 MG/10 ML DISP.SYRIN IV ONE (14:02)
[2021-04-15] MEDS ORDERED: EPINEPHRINE (1:10,000) SYRINGE 1 MG/10 ML DISP.SYRIN IVP ONE (14:02)
--- NOTE | 2021-04-15 15:00 | NUR ---
RN NOTES POST MORTEM CARE DONE, NO BELONGINGS NOTED, PT HAS NO FAMILY .
[2021-04-16] MEDS ORDERED: VANCOMYCIN 0.75 GM in IV D5W 250 ML IV SCH (09:00)
--- NOTE | 2021-04-16 10:28 | NUR ---
PUBLIC SHOTGUN SHELL ASSEMBLY MACHINE OPERATOR OFFICER OF THE DAY NATHALIA CASTELLON #[phone] NOTIFIED ABOUT THE DECEDENT'S & STATED JAKY MITCHELL, THE ASSIGNED PUBLIC CONSERVATOR [phone] IS STILL ON VACATION TILL MONDAY
== END 2021-04-15 13:49 | DRG 720 ==
LOC: ER 22:18 → TRANSITION 03-28 02:15 → ICU 03-28 04:23 → TELE 03-29 15:52 → MED 03-29 16:03 → TELE 03-29 17:50 → ICU 04-05 17:23
PROVIDERS: ADMIT Internal Medicine; ATTEND Internal Medicine
PROC: 5A1955Z Respiratory Ventilation, Greater than 96 Consecutive Hours (ICD-10-PCS; principal; 2021-03-28)
PROC: 05HC33Z Insertion of Infusion Device into Left Basilic Vein, Percutaneous Approach (ICD-10-PCS; 2021-03-29)
PROC: 30233N1 Transfusion of Nonautologous Red Blood Cells into Peripheral Vein, Percutaneous Approach (ICD-10-PCS; 2021-03-31)
PROC: 0W993ZZ Drainage of Right Pleural Cavity, Percutaneous Approach (ICD-10-PCS; 2021-03-31)
PROC: 05HB33Z Insertion of Infusion Device into Right Basilic Vein, Percutaneous Approach (ICD-10-PCS; 2021-04-11)
PROC: 03HB33Z Insertion of Infusion Device into Right Radial Artery, Percutaneous Approach (ICD-10-PCS; 2021-04-11)
PROC: 02HV33Z Insertion of Infusion Device into Superior Vena Cava, Percutaneous Approach (ICD-10-PCS; 2021-04-14)
PROC: B548ZZA Ultrasonography of Superior Vena Cava, Guidance (ICD-10-PCS; 2021-04-14)
PROC: 5A2204Z Restoration of Cardiac Rhythm, Single (ICD-10-PCS; 2021-04-15)
DX: A41.9 Sepsis, unspecified organism (principal); J96.21 Acute and chronic respiratory failure with hypoxia; K72.00 Acute and subacute hepatic failure without coma; J69.0 Pneumonitis due to inhalation of food and vomit; G93.49 Other encephalopathy; R65.21 Severe sepsis with septic shock; J85.0 Gangrene and necrosis of lung; I21.4 Non-ST elevation (NSTEMI) myocardial infarction; K92.2 Gastrointestinal hemorrhage, unspecified; D68.59 Other primary thrombophilia; E83.39 Other disorders of phosphorus metabolism; E43 Unspecified severe protein-calorie malnutrition; E87.2 Acidosis; J15.9 Unspecified bacterial pneumonia; E87.0 Hyperosmolality and hypernatremia; Z20.822 Contact with and (suspected) exposure to COVID-19; R74.01 Elevation of levels of liver transaminase levels; D50.0 Iron deficiency anemia secondary to blood loss (chronic); Z74.09 Other reduced mobility; Z99.11 Dependence on respirator [ventilator] status; Z93.1 Gastrostomy status; Z93.0 Tracheostomy status; Z86.718 Personal history of other venous thrombosis and embolism; Z86.711 Personal history of pulmonary embolism; Z79.01 Long term (current) use of anticoagulants; Z74.01 Bed confinement status; V89.2XXS Person injured in unspecified motor-vehicle accident, traffic, sequela; E83.42 Hypomagnesemia; E86.1 Hypovolemia; L89.896 Pressure-induced deep tissue damage of other site; L89.156 Pressure-induced deep tissue damage of sacral region; E87.6 Hypokalemia; I48.91 Unspecified atrial fibrillation; I47.2 Ventricular tachycardia; J98.11 Atelectasis; N17.9 Acute kidney failure, unspecified; R13.10 Dysphagia, unspecified; J93.82 Other air leak; I11.9 Hypertensive heart disease without heart failure; E87.1 Hypo-osmolality and hyponatremia
CPT/HCPCS: 31720; 36410; 36415; 36569; 36600; 71045-TC; 71250-TC; 75989-TC; 76700-TC; 80048-TC; 80053-TC; 80061-TC; 80076-TC; 80202-TC; 81001; 82272-TC; 82533; 82570-TC; 82803-TC; 82962-TC; 83540-TC; 83605-TC; 83735-TC; 83880; 84100-TC; 84155; 84165; 84300-TC; 84443-TC; 84484-TC; 85025-TC; 85027-TC; 85610-TC; 85730-TC; 86803; 86850-TC; 87040-TC; 87070; 87070-TC; 87075-TC; 87081-TC; 87086-TC; 87116; 87186-TC; 87206; 87340; 87806; 88108-TC; 88305-TC; 89051-TC; 93307-TC; 93970-TC; 94002-TC; 94003-TC; 94760-TC; 94762-TC; 94799-TC; 99082-TC; A4623; A6403; A7526; A9563; C9113; C9803; G0378; J0153; J0171; J0456; J0692; J0696; J1644; J1650; J1720; J2185; J2270; J3370; J3475; J3480; J3490; J7030; J7040; J7042; J7050; J7060; J7070; P9016; U0003